=== PATIENT | male | born 1990 | race Caucasian/White ===

== ENCOUNTER 2020-06-01 17:36 | Inpatient (IN) | payer MEDICAID ==
[~2020-06-01] VITALS: Ht 180.3 cm; Wt 69.2 kg
[2020-06-01] MEDS ORDERED: normal saline 1000ML IV soln IVB ONE (19:10)
--- NOTE | 2020-06-01 19:27 | NUR ---
PT HAD PICC LINE TO NITISH TODAY THAT WAS REMOVED WHEN HE LEFT [facility]. NO SWELLING, NO PAIN TO NITISH. PT ALSO HAD PICC LINE TO MIGUEL THAT WAS REMOVED TWO DAYS AGO PER HIS REPORT, FOR PAIN AND "IT WASNT WORKING." HE C/O PAIN TO MIGUEL AND SAID THE ARM HAS BEEN PAINFUL SINCE PICC WAS REMOVED, ELECTED TO PLACE PIV TO LFA. Addendum: 06/01/20 at 1930 by CACHORRO PT HAD PICC LINE TO NITISH TODAY THAT WAS REMOVED WHEN HE LEFT [facility]. NO SWELLING, NO PAIN TO NITISH. PT ALSO HAD PICC LINE TO MIGUEL THAT WAS REMOVED TWO DAYS AGO PER HIS REPORT, FOR PAIN AND "IT WASNT WORKING." HE C/O PAIN TO MIGUEL AND SAID THE ARM HAS BEEN PAINFUL SINCE PICC WAS REMOVED, ELECTED TO PLACE PIV TO RFA.
[2020-06-01 19:48] LABS: BASOPHILS # (AUTO) 0.1 X10'3 (0-0.2); BASOPHILS % (AUTO) 0.9 % (0-1); EOSINOPHILS # (AUTO) 0.5 X10'3 (0-0.9); EOSINOPHILS % (AUTO) 5.1 % (0-6); HEMATOCRIT 30.8 % (42.0-52.0); HEMOGLOBIN 10.5 g/dl (14.0-17.9); LYMPHOCYTES # (AUTO) 1.6 X10'3 (1.1-4.8); LYMPHOCYTES % (AUTO) 15.2 % (21-51); MEAN CORPUSCULAR HEMOGLOBIN 30.4 PG (27.0-31.0); MEAN CORPUSCULAR VOLUME 89.2 FL (78-98); MEAN PLATELET VOLUME 8.4 FL (7.4-10.4); MONOCYTES # (AUTO) 1.3 X10'3 (0-0.9); MONOCYTES % (AUTO) 12.6 % (2-12); NEUTROPHILS # (AUTO) 6.9 X10'3 (1.8-7.7); NEUTROPHILS % (AUTO) 66.2 % (42-75); PLATELET COUNT 327 X10'3 (140-440); RED BLOOD COUNT 3.45 X10'6 (4.70-6.10); RED CELL DISTRIBUTION WIDTH 16.2 % (11.5-14.5); WHITE BLOOD COUNT 10.5 X10'3 (4.5-11.0)
[2020-06-01 20:00] LABS: ALANINE AMINOTRANSFERASE 29 U/L (12-78); ALBUMIN 3.6 G/DL (3.4-5.0); ALBUMIN/GLOBULIN RATIO 0.9 (1.1-1.5); ALKALINE PHOSPHATASE 77 IU/L (46-116); ANION GAP 9 (8-16); ASPARTATE AMINO TRANSFERASE 20 U/L (10-37); BILIRUBIN,TOTAL 0.2 MG/DL (0.1-1.0); BLOOD UREA NITROGEN 27 MG/DL (7-18); BUN/CREATININE RATIO 14.9 (5.4-32.0); C-REACTIVE PROTEIN 0.15 MG/DL (0.0-0.5); CALCIUM 9.7 MG/DL (8.5-10.1); CHLORIDE 101 MMOL/L (99-107); CREATININE 1.81 MG/DL (0.60-1.10); GLUCOSE 144 MG/DL (70-104); POTASSIUM 4.6 MMOL/L (3.5-5.1); SODIUM 139 MMOL/L (135-145); TOTAL CARBON DIOXIDE 28.8 MMOL/L (24-32); TOTAL PROTEIN 7.6 G/DL (6.4-8.2); eGFR 44 ML/MIN
[2020-06-01] MEDS ORDERED: GABA-530 PO (20:52)
[2020-06-01] MEDS ORDERED: OLANZapine 5mg rapidly disint. tablet PO SCH ×2 (21:00→23:29)
[2020-06-01] MEDS ORDERED: ALPR1TAB2 PO (21:08)
[2020-06-01] MEDS ORDERED: INSU200I SQ (21:08)
[2020-06-01] MEDS ORDERED: VANC1VIA21 IV ×2 (21:08→21:32)
[2020-06-01] MEDS ORDERED: INSU100V9 SQ (21:08)
[2020-06-01] MEDS ORDERED: LOPE-190 PO ×2 (21:08)
[2020-06-01] MEDS ORDERED: DICL100G15 TOP (21:08)
[2020-06-01] MEDS ORDERED: PIPE4.5F6 IV (21:08)
[2020-06-01] MEDS ORDERED: OXYC-150 PO (21:26)
[2020-06-01] MEDS ORDERED: LACT1CAP92 PO (21:26)
[2020-06-01] MEDS ORDERED: OLAN20TA3 PO (21:26)
[2020-06-01] MEDS ORDERED: GABA300C PO (21:26)
[2020-06-01] MEDS ORDERED: ALBU18HF2 INH (21:26)
[2020-06-01] MEDS ORDERED: DIVA250T15 PO (21:26)
[2020-06-01] MEDS ORDERED: NICO-807 BC (21:26)
[2020-06-01] MEDS ORDERED: OLAN10TA3 PO (21:26)
[2020-06-01] MEDS ORDERED: OLAN5TAB3 PO (21:26)
[2020-06-01] MEDS ORDERED: morphine 4 MG/ML inj SYRINge IV ONE (21:30)
[2020-06-01] MEDS ORDERED: ACET-890 PO (21:32)
[2020-06-01] MEDS ORDERED: OXYC20TA55 PO (21:32)
[2020-06-01] MEDS ORDERED: POLY119P2 PO (21:32)
[2020-06-01] MEDS ORDERED: ondansetron/PF 4mg/2ml inj IV PRN (22:55)
[2020-06-01] MEDS ORDERED: potassium Cl 40MEQ/1/2NS 520ml 520 ML IV PRN ×2 (22:55)
[2020-06-01] MEDS ORDERED: potassium Cl 20 mEq SR tablet PO PRN ×2 (22:55)
[2020-06-01] MEDS ORDERED: acetaminophen 325mg tablet PO PRN (22:55)
[2020-06-01] MEDS ORDERED: magnesium hydroxide 30ml (MOM) UD suspension PO PRN (22:55)
[2020-06-01] MEDS ORDERED: albuterol 2.5 MG/3 ML nebule NEB PRN (23:00)
[2020-06-01] MEDS ORDERED: ACETAMINOPHEN PO PRN (23:00)
[2020-06-01] MEDS ORDERED: polyethylene glycol 3350 17gm powd pack PO PRN (23:00)
[2020-06-01 23:23] LABS: ETHANOL < 0.010 GM/DL (0.0-0.010)
[2020-06-01] MEDS ORDERED: OLANZAPINE 5 MG TABLET PO SCH (23:33)
[2020-06-01 23:54] LABS: URINE AMPHETAMINE SCREEN NEGATIVE (Neg); URINE BARBITUATE SCREEN NEGATIVE (Neg); URINE BENZODIAZEPINES SCREEN POSITIVE (Neg); URINE CANNABINOID SCREEN NEGATIVE (Neg); URINE COCAINE SCREEN NEGATIVE (Neg); URINE METHADONE SCREEN NEGATIVE (Neg); URINE OPIATE SCREEN POSITIVE (Neg); URINE PHENCYCLIDINE SCREEN NEGATIVE (Neg)
[2020-06-01] MEDS: divalproex 250mg tablet, delayed-release PO SCH (23:54)
[2020-06-01] MEDS: piperacillin/tazo 4.5gm/100ml 100 ML IV SCH (23:55)
[2020-06-02] MEDS ORDERED: TAZOBACTAM IV SCH
[2020-06-02] MEDS ORDERED: PIPERACILLIN IV SCH
[2020-06-02] MEDS: vancomycin/NS 1 GM ADD-VANTAGE 250 ML IV SCH ×2 (00:26→12:15)
--- NOTE | 2020-06-02 00:39 | NUR ---
Received pt. report from ER nurse Argelia.
[2020-06-02] MEDS: oxyCODONE/APAP 10/325mg tablet PO PRN ×2 (00:42→07:08)
[2020-06-02 00:50] VITALS: BP 148/97
--- NOTE | 2020-06-02 01:00 | NUR ---
Assumed care from Sofia HOBBS
[2020-06-02] MEDS: olanzapine 10mg tablet PO SCH ×4 (01:12→20:48)
[2020-06-02] MEDS: DICLOFENAC SODIUM TOP SCH ×4 (02:00→20:52)
[2020-06-02] MEDS ORDERED: dextrose ORAL solution 15 GM/59 ML bottle PO PRN (03:35)
[2020-06-02] MEDS ORDERED: MESSAGE TO PHARMACY PO ONE (03:35)
[2020-06-02] MEDS ORDERED: dextrose 50%-water 50ml dispensing syringe IV PRN ×2 (03:35)
[2020-06-02] MEDS ORDERED: glucagon, human recombinant 1mg kit SUBCUT PRN (03:35)
[2020-06-02] MEDS: ALPRAZolam 0.5mg tablet PO PRN ×3 (04:36→20:45)
--- NOTE | 2020-06-02 04:48 | NUR ---
pt defensive & argumentative in conversations- states he has pain &/or anxiety yet will fall asleep. Pt started to become very agitated asking I get freq of pain rx changed by MD. Disp'd prn xanax pt calmed down & went back to resting with eyes closed
[2020-06-02 06:00] VITALS: BP 149/96
--- NOTE | 2020-06-02 06:38 | NUR ---
Problems reprioritized. Patient report given, questions answered & plan of care reviewed with Jacqueline HOBBS.
[2020-06-02 07:20] LABS: BASOPHILS # (AUTO) 0.1 X10'3 (0-0.2); BASOPHILS % (AUTO) 0.9 % (0-1); EOSINOPHILS # (AUTO) 0.6 X10'3 (0-0.9); EOSINOPHILS % (AUTO) 6.4 % (0-6); HEMATOCRIT 32.7 % (42.0-52.0); HEMOGLOBIN 11.2 g/dl (14.0-17.9); LYMPHOCYTES # (AUTO) 2.1 X10'3 (1.1-4.8); LYMPHOCYTES % (AUTO) 22.6 % (21-51); MEAN CORPUSCULAR HEMOGLOBIN 30.5 PG (27.0-31.0); MEAN CORPUSCULAR HGB CONC 34.1 g/dL (33.0-36.5); MEAN CORPUSCULAR VOLUME 89.3 FL (78-98); MEAN PLATELET VOLUME 8.3 FL (7.4-10.4); MONOCYTES % (AUTO) 10.9 % (2-12); NEUTROPHILS # (AUTO) 5.4 X10'3 (1.8-7.7); NEUTROPHILS % (AUTO) 59.2 % (42-75); PLATELET COUNT 362 X10'3 (140-440); RED BLOOD COUNT 3.67 X10'6 (4.70-6.10); RED CELL DISTRIBUTION WIDTH 15.8 % (11.5-14.5); WHITE BLOOD COUNT 9.1 X10'3 (4.5-11.0)
[2020-06-02] MEDS: piperacillin/tazo 4.5gm/100ml 100 ML IV SCH ×2 (07:22→17:33)
[2020-06-02] MEDS: lactobacillus rhamnosus 10,000 MMU CELLS/CAPSULE PO SCH (07:22)
[2020-06-02] MEDS: gabapentin 300mg capsule PO SCH ×3 (07:22→20:48)
[2020-06-02 07:39] LABS: ALANINE AMINOTRANSFERASE 34 U/L (12-78); ALBUMIN 3.3 G/DL (3.4-5.0); ALBUMIN/GLOBULIN RATIO 0.8 (1.1-1.5); ALKALINE PHOSPHATASE 86 IU/L (46-116); ANION GAP 9 (8-16); ASPARTATE AMINO TRANSFERASE 28 U/L (10-37); BILIRUBIN,TOTAL 0.3 MG/DL (0.1-1.0); BLOOD UREA NITROGEN 22 MG/DL (7-18); BUN/CREATININE RATIO 17.3 (5.4-32.0); CALCIUM 9.6 MG/DL (8.5-10.1); CHLORIDE 102 MMOL/L (99-107); CREATININE 1.27 MG/DL (0.60-1.10); GLUCOSE 91 MG/DL (70-104); POTASSIUM 4.1 MMOL/L (3.5-5.1); SODIUM 137 MMOL/L (135-145); TOTAL CARBON DIOXIDE 26.4 MMOL/L (24-32); TOTAL PROTEIN 7.4 G/DL (6.4-8.2); eGFR 66 ML/MIN
[2020-06-02] MEDS ORDERED: vancomycin 1,000mg inj IV SCH ×2 (08:00)
[2020-06-02] MEDS: K and/or MAG REPLACEMENT MC SCH ×2 (08:00→20:00)
[2020-06-02] MEDS ORDERED: OXYCODONE HCL PO SCH (08:00)
[2020-06-02] MEDS ORDERED: insulin glargine (Lantus) pen - multi-dose SQ SCH (08:00)
[2020-06-02] MEDS ORDERED: oxyCODONE IR 5mg (immed. release) tablet PO PRN (09:40)
[2020-06-02 10:00] VITALS: BP 134/96
[2020-06-02] MEDS: divalproex 250mg tablet, delayed-release PO SCH ×2 (12:18→20:48)
[2020-06-02] MEDS: oxyCODONE IR 5mg (immed. release) tablet PO PRN (12:19)
[2020-06-02] MEDS: insulin Lispro (HumaLOG) vial - multi-dose SQ SCH ×2 (13:55→21:06)
[2020-06-02] MEDS: dextrose ORAL solution 15 GM/59 ML bottle PO PRN ×2 (17:30→17:49)
--- NOTE | 2020-06-02 17:41 | NUR ---
PAGER ID: [phone] MESSAGE: [phone] Nathan blood sugar 39, treating per protocol. Please change his lantus order. Jacqueline [phone]
[2020-06-02 18:00] VITALS: BP 90/54
--- NOTE | 2020-06-02 21:00 | NUR ---
Oxycontin IR 10 mg given per pt's request for reports of pain 10 on 0-10 pain scale in lower back and legs at 2044. Pt resting comfortably in bed with eyes closed at this time. No acute distress observed
[2020-06-02] MEDS: insulin glargine (Lantus) pen - multi-dose SQ SCH (21:09)
[2020-06-02 22:00] VITALS: BP 126/78
[2020-06-03] MEDS: piperacillin/tazo 4.5gm/100ml 100 ML IV SCH ×3 (00:12→16:32)
[2020-06-03] MEDS: vancomycin/NS 1 GM ADD-VANTAGE 250 ML IV SCH ×2 (00:12→12:21)
[2020-06-03] MEDS: olanzapine 10mg tablet PO SCH ×3 (01:32→20:23)
[2020-06-03] MEDS: oxyCODONE IR 5mg (immed. release) tablet PO PRN ×3 (01:33→17:38)
[2020-06-03] MEDS: DICLOFENAC SODIUM TOP SCH ×4 (02:24→20:00)
[2020-06-03 05:00] VITALS: BP 118/77
--- NOTE | 2020-06-03 05:22 | NUR ---
Pt irritable and verbally abusive towards nursing staff at times, in bed sleeping with eyes closed most of this shift, pain well managed with PRN Oxy IR. No acute distress or adverse effects to IV ABT observed.
[2020-06-03 06:00] VITALS: BP 134/96
[2020-06-03 07:03] LABS: BASOPHILS # (AUTO) 0.1 X10'3 (0-0.2); BASOPHILS % (AUTO) 0.8 % (0-1); EOSINOPHILS # (AUTO) 0.4 X10'3 (0-0.9); EOSINOPHILS % (AUTO) 4.8 % (0-6); HEMOGLOBIN 11.7 g/dl (14.0-17.9); LYMPHOCYTES # (AUTO) 1.9 X10'3 (1.1-4.8); LYMPHOCYTES % (AUTO) 24.7 % (21-51); MEAN CORPUSCULAR HEMOGLOBIN 30.2 PG (27.0-31.0); MEAN CORPUSCULAR HGB CONC 33.5 g/dL (33.0-36.5); MEAN PLATELET VOLUME 8.3 FL (7.4-10.4); MONOCYTES # (AUTO) 0.9 X10'3 (0-0.9); MONOCYTES % (AUTO) 11.8 % (2-12); NEUTROPHILS # (AUTO) 4.5 X10'3 (1.8-7.7); NEUTROPHILS % (AUTO) 57.9 % (42-75); PLATELET COUNT 337 X10'3 (140-440); RED BLOOD COUNT 3.88 X10'6 (4.70-6.10); WHITE BLOOD COUNT 7.8 X10'3 (4.5-11.0)
[2020-06-03 07:48] LABS: ALANINE AMINOTRANSFERASE 38 U/L (12-78); ALBUMIN 3.3 G/DL (3.4-5.0); ALBUMIN/GLOBULIN RATIO 0.8 (1.1-1.5); ALKALINE PHOSPHATASE 91 IU/L (46-116); ANION GAP 8 (8-16); ASPARTATE AMINO TRANSFERASE 26 U/L (10-37); BILIRUBIN,TOTAL 0.3 MG/DL (0.1-1.0); BLOOD UREA NITROGEN 24 MG/DL (7-18); BUN/CREATININE RATIO 20.3 (5.4-32.0); CALCIUM 9.5 MG/DL (8.5-10.1); CHLORIDE 101 MMOL/L (99-107); CREATININE 1.18 MG/DL (0.60-1.10); GLUCOSE 133 MG/DL (70-104); POTASSIUM 4.1 MMOL/L (3.5-5.1); SODIUM 135 MMOL/L (135-145); TOTAL CARBON DIOXIDE 26.1 MMOL/L (24-32); TOTAL PROTEIN 7.4 G/DL (6.4-8.2); eGFR 72 ML/MIN
[2020-06-03] MEDS: K and/or MAG REPLACEMENT MC SCH ×2 (08:00→19:18)
[2020-06-03] MEDS: gabapentin 300mg capsule PO SCH ×3 (08:25→20:24)
[2020-06-03] MEDS: divalproex 250mg tablet, delayed-release PO SCH ×2 (08:26→20:24)
[2020-06-03] MEDS: lactobacillus rhamnosus 10,000 MMU CELLS/CAPSULE PO SCH (08:26)
--- NOTE | 2020-06-03 08:40 | NUR ---
Entered room to obtain blood sugar, administer meds and serve breakfast. Patient was extremely rude, and verbally abusive. This nurse advised pt that his behavior, attitude & verbal abuse was inappropriate and unacceptable. He started threatening me "I'm gonna german you, you can't talk to me like that." I walked out of room. One hour later I returned with meds, accu check, & breakfast tray. Patient was calm,polite, & compliant.
[2020-06-03] MEDS: insulin Lispro (HumaLOG) vial - multi-dose SQ SCH ×2 (09:59→19:26)
[2020-06-03] MEDS: ALPRAZolam 0.5mg tablet PO PRN ×2 (10:05→20:24)
[2020-06-03] MEDS ORDERED: GABA300C PO (11:10)
[2020-06-03] MEDS ORDERED: ERGO500041 PO (11:10)
[2020-06-03] MEDS ORDERED: MYC15CR TOP (11:10)
[2020-06-03] MEDS ORDERED: ENOX40SY7 SUBCUT (11:10)
[2020-06-03] MEDS ORDERED: AMYL1CAP54 PO (11:10)
[2020-06-03] MEDS ORDERED: MULT-227 PO (11:10)
[2020-06-03] MEDS ORDERED: VANCOMYCIN LEVEL IV ONE (11:30)
[2020-06-03] MEDS: morphine 2 MG/ML inj. syringe IV PRN (11:49)
[2020-06-03] MEDS: LIPASE/PROTEASE/AMYLASE 4,200 unit CAPSULE.DR PO SCH ×2 (12:21→17:39)
--- NOTE | 2020-06-03 13:47 | NUR ---
DM Consult: A1c 9.8%. RD international project manager attempted bedside for written/verbal DM ed twice. Pt refused verbal ed and stated "I've had this for four years already." Written DM and RD contact information was left at bedside. Will remain available. Addendum: 06/03/20 at [address] Amended: Links added. Addendum: 06/03/20 at 1350 by Dion Nuñez RD COTY Approves
[2020-06-03 18:00] VITALS: BP 134/85
--- NOTE | 2020-06-03 18:25 | NUR ---
Patient in room ORTHO 4008. I have received report from FABY Phillips and had the opportunity to ask questions and assume patient care.
[2020-06-03] MEDS: oxyCODONE SR 10mg (sust. release) tab PO SCH (20:24)
[2020-06-03] MEDS: insulin glargine (Lantus) pen - multi-dose SQ SCH (21:44)
[2020-06-04] MEDS: vancomycin/NS 1 GM ADD-VANTAGE 250 ML IV SCH ×2 (00:54→12:44)
[2020-06-04] MEDS: piperacillin/tazo 4.5gm/100ml 100 ML IV SCH ×3 (00:54→16:20)
[2020-06-04] MEDS: morphine 2 MG/ML inj. syringe IV PRN ×2 (01:05→10:35)
[2020-06-04] MEDS: DICLOFENAC SODIUM TOP SCH ×3 (02:00→14:00)
--- NOTE | 2020-06-04 02:00 | NUR ---
IV infiltrated and could not get another line in until 0450 with multiple RNs trying. Patient was somewhat resistive to care and noncompliant as well.
[2020-06-04] MEDS: ALPRAZolam 0.5mg tablet PO PRN ×2 (04:27→20:39)
[2020-06-04] MEDS: oxyCODONE IR 5mg (immed. release) tablet PO PRN ×2 (04:52→12:48)
[2020-06-04 05:00] VITALS: BP 123/81
[2020-06-04 05:15] LABS: BASOPHILS # (AUTO) 0.1 X10'3 (0-0.2); BASOPHILS % (AUTO) 1.1 % (0-1); EOSINOPHILS # (AUTO) 0.4 X10'3 (0-0.9); EOSINOPHILS % (AUTO) 4.9 % (0-6); HEMOGLOBIN 11.9 g/dl (14.0-17.9); LYMPHOCYTES # (AUTO) 1.9 X10'3 (1.1-4.8); LYMPHOCYTES % (AUTO) 24.5 % (21-51); MEAN CORPUSCULAR HEMOGLOBIN 29.7 PG (27.0-31.0); MEAN CORPUSCULAR HGB CONC 33.1 g/dL (33.0-36.5); MEAN CORPUSCULAR VOLUME 89.8 FL (78-98); MEAN PLATELET VOLUME 8.4 FL (7.4-10.4); MONOCYTES # (AUTO) 0.9 X10'3 (0-0.9); MONOCYTES % (AUTO) 11.8 % (2-12); NEUTROPHILS # (AUTO) 4.6 X10'3 (1.8-7.7); NEUTROPHILS % (AUTO) 57.7 % (42-75); PLATELET COUNT 334 X10'3 (140-440); RED BLOOD COUNT 4.01 X10'6 (4.70-6.10); RED CELL DISTRIBUTION WIDTH 15.1 % (11.5-14.5); WHITE BLOOD COUNT 7.9 X10'3 (4.5-11.0)
[2020-06-04 05:19] LABS: ALANINE AMINOTRANSFERASE 48 U/L (12-78); ALBUMIN 3.4 G/DL (3.4-5.0); ALBUMIN/GLOBULIN RATIO 0.8 (1.1-1.5); ALKALINE PHOSPHATASE 95 IU/L (46-116); ANION GAP 10 (8-16); ASPARTATE AMINO TRANSFERASE 50 U/L (10-37); BILIRUBIN,TOTAL 0.3 MG/DL (0.1-1.0); BLOOD UREA NITROGEN 28 MG/DL (7-18); BUN/CREATININE RATIO 21.4 (5.4-32.0); CALCIUM 9.6 MG/DL (8.5-10.1); CHLORIDE 102 MMOL/L (99-107); CREATININE 1.31 MG/DL (0.60-1.10); GLUCOSE 147 MG/DL (70-104); POTASSIUM 4.1 MMOL/L (3.5-5.1); SODIUM 138 MMOL/L (135-145); TOTAL CARBON DIOXIDE 25.7 MMOL/L (24-32); TOTAL PROTEIN 7.7 G/DL (6.4-8.2); eGFR 63 ML/MIN
--- NOTE | 2020-06-04 06:33 | NUR ---
Problems reprioritized. Patient report given, questions answered & plan of care reviewed with FABY Phillips.
[2020-06-04] MEDS: lactobacillus rhamnosus 10,000 MMU CELLS/CAPSULE PO SCH (07:46)
[2020-06-04] MEDS: olanzapine 10mg tablet PO SCH ×2 (07:47→20:36)
[2020-06-04] MEDS: LIPASE/PROTEASE/AMYLASE 4,200 unit CAPSULE.DR PO SCH ×3 (07:47→17:50)
[2020-06-04] MEDS: divalproex 250mg tablet, delayed-release PO SCH ×2 (07:47→20:35)
[2020-06-04] MEDS: gabapentin 300mg capsule PO SCH ×3 (07:47→20:36)
[2020-06-04] MEDS: K and/or MAG REPLACEMENT MC SCH ×2 (08:00→20:00)
[2020-06-04] MEDS: oxyCODONE SR 10mg (sust. release) tab PO SCH ×2 (09:14→20:35)
[2020-06-04] MEDS: insulin Lispro (HumaLOG) vial - multi-dose SQ SCH ×4 (09:28→22:16)
[2020-06-04 12:55] LABS: LIPASE < 50 U/L (73-393)
--- NOTE | 2020-06-04 13:35 | NUR ---
Patient eating his "birthday cupcake". He heard the tv saying happy birthday (yes it did) He got tearful and said this is what happens, I hear things and it scares me. Patient was very emotional and anxious about "the voices in his head."
[2020-06-04 18:00] VITALS: BP 130/85
--- NOTE | 2020-06-04 18:43 | NUR ---
I have received report from Jacqueline HOBBS and had the opportunity to ask questions and assume patient care.
[2020-06-04 22:00] VITALS: BP 112/65
[2020-06-04] MEDS: morphine 4 MG/ML inj SYRINge IV PRN (22:03)
[2020-06-04] MEDS: insulin glargine (Lantus) pen - multi-dose SQ SCH (22:15)
[2020-06-05] MEDS: vancomycin/NS 1 GM ADD-VANTAGE 250 ML IV SCH ×2 (00:05→12:19)
[2020-06-05] MEDS: piperacillin/tazo 4.5gm/100ml 100 ML IV SCH ×3 (01:22→16:54)
[2020-06-05 02:00] VITALS: BP 106/64
[2020-06-05] MEDS: morphine 4 MG/ML inj SYRINge IV PRN ×4 (02:06→20:09)
--- NOTE | 2020-06-05 06:18 | NUR ---
Problems reprioritized. Patient report given, questions answered & plan of care reviewed with Mian HOBBS.
--- NOTE | 2020-06-05 06:19 | NUR ---
Patient in room ORTHO 4008. I have received report from FABY Jackson and had the opportunity to ask questions and assume patient care.
[2020-06-05 06:55] VITALS: BP 135/89
[2020-06-05] MEDS: LIPASE/PROTEASE/AMYLASE 4,200 unit CAPSULE.DR PO SCH ×3 (07:09→18:06)
[2020-06-05] MEDS: divalproex 250mg tablet, delayed-release PO SCH ×2 (07:09→20:08)
[2020-06-05] MEDS: olanzapine 10mg tablet PO SCH ×2 (07:09→20:08)
[2020-06-05] MEDS: oxyCODONE SR 10mg (sust. release) tab PO SCH ×2 (07:10→20:08)
[2020-06-05] MEDS: gabapentin 300mg capsule PO SCH ×3 (07:10→20:08)
[2020-06-05] MEDS: lactobacillus rhamnosus 10,000 MMU CELLS/CAPSULE PO SCH (07:10)
[2020-06-05 07:46] LABS: BASOPHILS # (AUTO) 0.1 X10'3 (0-0.2); EOSINOPHILS # (AUTO) 0.4 X10'3 (0-0.9); EOSINOPHILS % (AUTO) 6.4 % (0-6); HEMATOCRIT 34.8 % (42.0-52.0); HEMOGLOBIN 11.8 g/dl (14.0-17.9); LYMPHOCYTES # (AUTO) 1.8 X10'3 (1.1-4.8); LYMPHOCYTES % (AUTO) 26.4 % (21-51); MEAN CORPUSCULAR HEMOGLOBIN 30.2 PG (27.0-31.0); MEAN CORPUSCULAR VOLUME 88.9 FL (78-98); MEAN PLATELET VOLUME 8.3 FL (7.4-10.4); MONOCYTES # (AUTO) 0.9 X10'3 (0-0.9); MONOCYTES % (AUTO) 13.5 % (2-12); NEUTROPHILS # (AUTO) 3.6 X10'3 (1.8-7.7); NEUTROPHILS % (AUTO) 52.7 % (42-75); PLATELET COUNT 284 X10'3 (140-440); RED BLOOD COUNT 3.91 X10'6 (4.70-6.10); RED CELL DISTRIBUTION WIDTH 15.3 % (11.5-14.5); WHITE BLOOD COUNT 6.8 X10'3 (4.5-11.0)
[2020-06-05] MEDS: K and/or MAG REPLACEMENT MC SCH ×2 (08:00→20:00)
[2020-06-05 08:02] LABS: ALANINE AMINOTRANSFERASE 41 U/L (12-78); ALBUMIN 3.5 G/DL (3.4-5.0); ALBUMIN/GLOBULIN RATIO 0.8 (1.1-1.5); ALKALINE PHOSPHATASE 89 IU/L (46-116); ANION GAP 8 (8-16); ASPARTATE AMINO TRANSFERASE 19 U/L (10-37); BILIRUBIN,TOTAL 0.3 MG/DL (0.1-1.0); BLOOD UREA NITROGEN 30 MG/DL (7-18); BUN/CREATININE RATIO 26.3 (5.4-32.0); CALCIUM 9.7 MG/DL (8.5-10.1); CHLORIDE 100 MMOL/L (99-107); CREATININE 1.14 MG/DL (0.60-1.10); GLUCOSE 196 MG/DL (70-104); POTASSIUM 4.1 MMOL/L (3.5-5.1); SODIUM 134 MMOL/L (135-145); TOTAL PROTEIN 7.7 G/DL (6.4-8.2); eGFR 74 ML/MIN
[2020-06-05] MEDS: ALPRAZolam 0.5mg tablet PO PRN ×2 (08:16→20:08)
[2020-06-05] MEDS: insulin Lispro (HumaLOG) vial - multi-dose SQ SCH ×3 (08:18→20:17)
[2020-06-05 10:00] VITALS: BP 135/92
--- NOTE | 2020-06-05 10:59 | NUR ---
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 Pt hx alcoholic, pancreatitis, T1DM refusing ed this admit, seizures, and meth abuse. PO 75-100% avg easy to chew/carb controlled diet w/ double proteins TIDWM meeting needs. LBM 3/2. Noted pt receiving pancreatic enzymes w/ lipase low and no mention of pancreatitis DX or chronic pancreatitis in EMR. May benefit from holding if DO agreeable. RD d/w RN regarding routine thiamin, folic, MVI if DO agreeable for etoh hx. Will continue to monitor. Rec: 1. continue carb controlled/easy to chew diet; double proteins TIDWM 2. consider holding pancreatic enzymes IF no hx chronic pancreatitis since not on home meds list and DO agreeable 3. thiamin, folic, MVI for etoh hx 4. bowel care per rx 5. weekly wts Addendum: 06/05/20 at [address] Amended: Links added.
[2020-06-05] MEDS: oxyCODONE IR 5mg (immed. release) tablet PO PRN (11:03)
[2020-06-05] MEDS ORDERED: oxyCODONE/APAP 5-325mg tablet PO PRN (11:20)
--- NOTE | 2020-06-05 15:03 | NUR ---
Patient agitated this morning and did not allow for full physical assessment. Only able to assess what patient allowed. Patient states he did not get enough sleep and was tired and "painful all over." Patient will state he is painful and asking for Dr to change pain meds however he has been sleeping throughout shift when he is not disturbed Dr Wolfe aware. Patient quickly becomes irritable when awaken or questioned. Patient mood shifts as he also has been tearful, crying and has stated he has been "hearing things and with the depression I can't stop crying. And when I feel this why I get angry. I don't wanna be fucking angry and crying." Patient asking for Dr to "check my meds I need something else that will help." Dr. Wolfe notified. Patient thankful when he is able to get what he wants however when he does not he will be agitated. Patient has asked for snacks throughout the day. He was given sugar free applesauce, sugar free jello and diet lemon [place] and was very thankful but became agitated when he had asked for dejuan crackers and 4 string cheeses and was educated about carb diet and increase in blood glucose. Patient at this time appears to be sleeping comfortably with eyes closed, respirations even and unlabored. Will continue to monitor.
--- NOTE | 2020-06-05 15:37 | NUR ---
Alia from [facility] in to see patient.
[2020-06-05] MEDS: oxyCODONE/APAP 10/325mg tablet PO PRN ×2 (16:39→22:28)
--- NOTE | 2020-06-05 17:02 | NUR ---
Patient states, "I'm feeling happy right now" appears to be in good spirits. When asked what is making him happy patient shrugged "I don't know and smiled."
--- NOTE | 2020-06-05 17:10 | NUR ---
Patient room door is shut but able to hear patient crying in room and talking. When went to room to check on patient PCT was in room with patient gathering vital signs and patient tearful and crying stating, "someone last night said I was jacking off and I wasn't. I want to talk to them. That's embarrassing I would never do that. The doctor said they said that and they're out there telling everybody." Reassured patient that there has been no mention of patient doing as such. Patient calmed down and stopped crying. Will continue to monitor.
[2020-06-05 18:00] VITALS: BP 128/99
--- NOTE | 2020-06-05 18:20 | NUR ---
report received and discussed with Mian HOBBS.
--- NOTE | 2020-06-05 18:31 | NUR ---
Problems reprioritized. Patient report given, questions answered & plan of care reviewed with FABY Rodriguez.
[2020-06-05] MEDS: insulin glargine (Lantus) pen - multi-dose SQ SCH (20:15)
[2020-06-05 22:00] VITALS: BP 130/77
[2020-06-06] MEDS: piperacillin/tazo 4.5gm/100ml 100 ML IV SCH ×4 (00:15→23:09)
[2020-06-06] MEDS: vancomycin/NS 1 GM ADD-VANTAGE 250 ML IV SCH ×2 (00:15→12:17)
[2020-06-06] MEDS: morphine 4 MG/ML inj SYRINge IV PRN ×2 (02:02→19:13)
[2020-06-06] MEDS: oxyCODONE/APAP 10/325mg tablet PO PRN ×4 (04:16→23:09)
--- NOTE | 2020-06-06 06:14 | NUR ---
patient report given and discussed with Ann HOBBS. Addendum: 06/06/20 at 0616 by Michael MACHUCA RN Report given to
[2020-06-06 06:34] VITALS: BP 122/89
--- NOTE | 2020-06-06 06:34 | NUR ---
Patient in room ORTHO 4008. I have received report from [facility] and had the opportunity to ask questions and assume patient care.
[2020-06-06] MEDS: divalproex 250mg tablet, delayed-release PO SCH ×2 (07:35→20:36)
[2020-06-06] MEDS: lactobacillus rhamnosus 10,000 MMU CELLS/CAPSULE PO SCH (07:35)
[2020-06-06] MEDS: ALPRAZolam 0.5mg tablet PO PRN (07:36)
[2020-06-06] MEDS: oxyCODONE SR 10mg (sust. release) tab PO SCH ×2 (07:36→20:37)
[2020-06-06] MEDS: olanzapine 10mg tablet PO SCH ×2 (07:36→20:37)
[2020-06-06] MEDS: gabapentin 300mg capsule PO SCH ×3 (07:36→20:36)
[2020-06-06] MEDS: LIPASE/PROTEASE/AMYLASE 4,200 unit CAPSULE.DR PO SCH ×3 (07:36→17:33)
[2020-06-06 07:53] LABS: BASOPHILS # (AUTO) 0.1 X10'3 (0-0.2); EOSINOPHILS # (AUTO) 0.5 X10'3 (0-0.9); EOSINOPHILS % (AUTO) 7.9 % (0-6); HEMATOCRIT 35.9 % (42.0-52.0); HEMOGLOBIN 11.9 g/dl (14.0-17.9); LYMPHOCYTES # (AUTO) 1.5 X10'3 (1.1-4.8); LYMPHOCYTES % (AUTO) 21.5 % (21-51); MEAN CORPUSCULAR HEMOGLOBIN 29.9 PG (27.0-31.0); MEAN CORPUSCULAR HGB CONC 33.1 g/dL (33.0-36.5); MEAN CORPUSCULAR VOLUME 90.5 FL (78-98); MEAN PLATELET VOLUME 8.8 FL (7.4-10.4); MONOCYTES # (AUTO) 0.9 X10'3 (0-0.9); MONOCYTES % (AUTO) 12.9 % (2-12); NEUTROPHILS # (AUTO) 3.9 X10'3 (1.8-7.7); NEUTROPHILS % (AUTO) 56.7 % (42-75); PLATELET COUNT 262 X10'3 (140-440); RED BLOOD COUNT 3.97 X10'6 (4.70-6.10); RED CELL DISTRIBUTION WIDTH 15.1 % (11.5-14.5); WHITE BLOOD COUNT 6.9 X10'3 (4.5-11.0)
[2020-06-06] MEDS: K and/or MAG REPLACEMENT MC SCH ×2 (08:00→20:00)
[2020-06-06 08:14] LABS: ALANINE AMINOTRANSFERASE 37 U/L (12-78); ALBUMIN 3.4 G/DL (3.4-5.0); ALBUMIN/GLOBULIN RATIO 0.9 (1.1-1.5); ALKALINE PHOSPHATASE 78 IU/L (46-116); ANION GAP 11 (8-16); ASPARTATE AMINO TRANSFERASE 23 U/L (10-37); BILIRUBIN,TOTAL 0.3 MG/DL (0.1-1.0); BLOOD UREA NITROGEN 35 MG/DL (7-18); BUN/CREATININE RATIO 29.7 (5.4-32.0); CALCIUM 9.3 MG/DL (8.5-10.1); CHLORIDE 98 MMOL/L (99-107); CREATININE 1.18 MG/DL (0.60-1.10); GLUCOSE 196 MG/DL (70-104); POTASSIUM 4.3 MMOL/L (3.5-5.1); SODIUM 135 MMOL/L (135-145); TOTAL CARBON DIOXIDE 26.5 MMOL/L (24-32); TOTAL PROTEIN 7.4 G/DL (6.4-8.2); eGFR 72 ML/MIN
[2020-06-06] MEDS: insulin Lispro (HumaLOG) vial - multi-dose SQ SCH ×3 (08:52→21:17)
[2020-06-06 09:52] VITALS: BP 133/83
[2020-06-06] MEDS: ALPRAZolam 0.5mg tablet PO SCH ×2 (11:50→20:36)
[2020-06-06] MEDS: mag hydrox/Alum hydrox/simeth 30ml oral suspension PO PRN (17:04)
[2020-06-06] MEDS: morphine 2 MG/ML inj. syringe IV PRN (17:05)
[2020-06-06 18:00] VITALS: BP 121/71
--- NOTE | 2020-06-06 18:09 | NUR ---
Problems reprioritized. Patient report given, questions answered & plan of care reviewed with Michael.
[2020-06-06] MEDS: insulin glargine (Lantus) pen - multi-dose SQ SCH (20:52)
--- NOTE | 2020-06-06 21:00 | NUR ---
Paged Dr. Levi regarding elevated blood glucose of 409 but this was 15 minutes after he ate and no insulin was given at regular dinner time since he didn't get finished eating till now. His dinner blood sugar was 206 and nothing given at that time was waiting on him to finish his dinner per pt's nurse. His Lantus insulin was increased to 17 units based on am elevated blood sugar per protocol. Dr. Levi is going to order specific dose of Humalog insulin to be given at this time.
[2020-06-06 22:00] VITALS: BP 123/74
[2020-06-07] MEDS: vancomycin/NS 1 GM ADD-VANTAGE 250 ML IV SCH ×2 (00:28→12:08)
[2020-06-07] MEDS: morphine 2 MG/ML inj. syringe IV PRN ×3 (01:37→17:35)
[2020-06-07] MEDS: oxyCODONE/APAP 10/325mg tablet PO PRN ×4 (04:20→22:41)
--- NOTE | 2020-06-07 06:29 | NUR ---
Patient in room ORTHO 4008. I have received report from [facility] and had the opportunity to ask questions and assume patient care.
[2020-06-07 06:32] VITALS: BP 127/89
[2020-06-07] MEDS: LIPASE/PROTEASE/AMYLASE 4,200 unit CAPSULE.DR PO SCH ×3 (07:46→17:35)
[2020-06-07] MEDS: lactobacillus rhamnosus 10,000 MMU CELLS/CAPSULE PO SCH (07:46)
[2020-06-07] MEDS: divalproex 250mg tablet, delayed-release PO SCH ×2 (07:46→20:31)
[2020-06-07] MEDS: piperacillin/tazo 4.5gm/100ml 100 ML IV SCH ×3 (07:46→23:51)
[2020-06-07] MEDS: oxyCODONE SR 10mg (sust. release) tab PO SCH ×2 (07:46→20:31)
[2020-06-07] MEDS: gabapentin 300mg capsule PO SCH ×3 (07:46→20:30)
[2020-06-07] MEDS: olanzapine 10mg tablet PO SCH ×2 (07:47→20:31)
[2020-06-07] MEDS: ALPRAZolam 0.5mg tablet PO SCH ×2 (07:47→20:30)
[2020-06-07] MEDS: K and/or MAG REPLACEMENT MC SCH ×2 (08:00→20:00)
--- NOTE | 2020-06-07 08:05 | NUR ---
Spoke with Dr. Wolfe about insulin protocol for this patient. He is a type 1 diabetic and had a PM BS in the 400s and was not covered with humalog for dinner causing a blood sugar of 272 this morning which would increase him from a level 3 to 4. Yesterday I increased him to a level 4 at breakfast and gave 15 units of insulin which dropped him to a 76 at lunch time. For correctional and nutritional coverage this morning at a level 4 he would be getting 23 units of insulin which i feel is too much for him. Dr. Wolfe in agreeance and he is OK to stay at a LEVEL 3.
[2020-06-07] MEDS: insulin Lispro (HumaLOG) vial - multi-dose SQ SCH ×3 (08:13→18:35)
--- NOTE | 2020-06-07 09:06 | NUR ---
spoke to pharmacist sakina zaragoza. He states that since the last one on 06/03 was therapeutic there will not be another trough drawn for 5-7 days, however the renal function needs to be monitored daily.
--- NOTE | 2020-06-07 09:45 | NUR ---
Both IVs infiltrated, 22g to L forearm and 20g to R hand. Charge nurse started new 20g in right forearm, flushes well and is infusing IV abx per md order.
[2020-06-07 09:55] VITALS: BP 131/89
[2020-06-07] MEDS ORDERED: vitamin A & D ointment-NF 1 APPLIC TUBE TP PRN (11:55)
[2020-06-07] MEDS: ALPRAZolam 0.5mg tablet PO PRN (12:08)
[2020-06-07] MEDS: mag hydrox/Alum hydrox/simeth 30ml oral suspension PO PRN (16:08)
--- NOTE | 2020-06-07 16:29 | NUR ---
Patient needs a PICC for IV abx that are needed until 06/23. Paged PICC when I received the order with no response back. PT will need a picc wednesday when picc nurse is here.
[2020-06-07 18:00] VITALS: BP 143/83
--- NOTE | 2020-06-07 18:23 | NUR ---
Problems reprioritized. Patient report given, questions answered & plan of care reviewed with Michael HOBBS.
[2020-06-07] MEDS: mineral oil/petrolatum, white cream 113gm jar TP SCH (20:31)
[2020-06-07] MEDS: insulin glargine (Lantus) pen - multi-dose SQ SCH (20:41)
[2020-06-07 22:00] VITALS: BP 132/78
[2020-06-08] MEDS: vancomycin/NS 1 GM ADD-VANTAGE 250 ML IV SCH ×2 (00:33→13:22)
[2020-06-08] MEDS: morphine 2 MG/ML inj. syringe IV PRN ×2 (02:19→17:10)
[2020-06-08] MEDS: oxyCODONE/APAP 10/325mg tablet PO PRN ×4 (04:35→22:29)
[2020-06-08 06:00] VITALS: BP_SYST 140; BP_SYST 150; BP_DIAS 88; BP_DIAS 97
--- NOTE | 2020-06-08 06:45 | NUR ---
Patient in room ORTHO 4008. I have received report from FABY MEDELLIN and had the opportunity to ask questions and assume patient care.
[2020-06-08] MEDS: olanzapine 10mg tablet PO SCH ×2 (07:43→20:15)
[2020-06-08] MEDS: lactobacillus rhamnosus 10,000 MMU CELLS/CAPSULE PO SCH (07:43)
[2020-06-08 07:44] LABS: BASOPHILS # (AUTO) 0.1 X10'3 (0-0.2); BASOPHILS % (AUTO) 0.7 % (0-1); EOSINOPHILS # (AUTO) 0.8 X10'3 (0-0.9); EOSINOPHILS % (AUTO) 8.9 % (0-6); HEMATOCRIT 35.4 % (42.0-52.0); HEMOGLOBIN 11.8 g/dl (14.0-17.9); LYMPHOCYTES # (AUTO) 2.9 X10'3 (1.1-4.8); LYMPHOCYTES % (AUTO) 31.4 % (21-51); MEAN CORPUSCULAR HEMOGLOBIN 29.8 PG (27.0-31.0); MEAN CORPUSCULAR HGB CONC 33.3 g/dL (33.0-36.5); MEAN CORPUSCULAR VOLUME 89.5 FL (78-98); MEAN PLATELET VOLUME 8.8 FL (7.4-10.4); MONOCYTES # (AUTO) 1.2 X10'3 (0-0.9); MONOCYTES % (AUTO) 12.5 % (2-12); NEUTROPHILS # (AUTO) 4.3 X10'3 (1.8-7.7); NEUTROPHILS % (AUTO) 46.5 % (42-75); PLATELET COUNT 293 X10'3 (140-440); RED BLOOD COUNT 3.95 X10'6 (4.70-6.10); RED CELL DISTRIBUTION WIDTH 14.6 % (11.5-14.5); WHITE BLOOD COUNT 9.4 X10'3 (4.5-11.0)
[2020-06-08] MEDS: gabapentin 300mg capsule PO SCH ×3 (07:44→20:16)
[2020-06-08] MEDS: oxyCODONE SR 10mg (sust. release) tab PO SCH ×2 (07:44→20:15)
[2020-06-08] MEDS: LIPASE/PROTEASE/AMYLASE 4,200 unit CAPSULE.DR PO SCH ×3 (07:45→17:59)
[2020-06-08] MEDS: divalproex 250mg tablet, delayed-release PO SCH ×2 (07:47→20:15)
[2020-06-08] MEDS: piperacillin/tazo 4.5gm/100ml 100 ML IV SCH ×2 (07:47→15:45)
[2020-06-08] MEDS: ALPRAZolam 0.5mg tablet PO SCH ×2 (07:48→20:15)
[2020-06-08] MEDS: mineral oil/petrolatum, white cream 113gm jar TP SCH ×2 (07:49→20:22)
[2020-06-08] MEDS: K and/or MAG REPLACEMENT MC SCH ×2 (08:00→20:00)
[2020-06-08 08:12] LABS: ALANINE AMINOTRANSFERASE 27 U/L (12-78); ALBUMIN 3.7 G/DL (3.4-5.0); ALBUMIN/GLOBULIN RATIO 0.9 (1.1-1.5); ALKALINE PHOSPHATASE 81 IU/L (46-116); ANION GAP 10 (8-16); ASPARTATE AMINO TRANSFERASE 14 U/L (10-37); BILIRUBIN,TOTAL 0.2 MG/DL (0.1-1.0); BLOOD UREA NITROGEN 32 MG/DL (7-18); CALCIUM 9.5 MG/DL (8.5-10.1); CHLORIDE 97 MMOL/L (99-107); CREATININE 1.39 MG/DL (0.60-1.10); GLUCOSE 296 MG/DL (70-104); POTASSIUM 4.7 MMOL/L (3.5-5.1); SODIUM 134 MMOL/L (135-145); TOTAL CARBON DIOXIDE 27.4 MMOL/L (24-32); eGFR 59 ML/MIN
[2020-06-08] MEDS: insulin Lispro (HumaLOG) vial - multi-dose SQ SCH ×2 (09:52→20:13)
--- NOTE | 2020-06-08 10:00 | NUR ---
PER IT IS OK TO GIVE MORPHINE AN HOUR AFTER PERCOCET
[2020-06-08 10:52] VITALS: BP 150/97
[2020-06-08 18:00] VITALS: BP 126/78
[2020-06-08] MEDS: ALPRAZolam 0.5mg tablet PO PRN (18:01)
--- NOTE | 2020-06-08 18:52 | NUR ---
Problems reprioritized. Patient report given, questions answered & plan of care reviewed with FABY RAMIREZ.
[2020-06-08 22:00] VITALS: BP 113/71
[2020-06-08] MEDS: insulin glargine (Lantus) pen - multi-dose SQ SCH (22:18)
[2020-06-08] MEDS ORDERED: VANCOMYCIN LEVEL IV ONE (23:30)
[2020-06-09] MEDS: piperacillin/tazo 4.5gm/100ml 100 ML IV SCH ×5 (00:27→23:41)
[2020-06-09] MEDS: morphine 2 MG/ML inj. syringe IV PRN ×4 (00:27→20:50)
[2020-06-09] MEDS: vancomycin/NS 1 GM ADD-VANTAGE 250 ML IV SCH ×3 (00:27→23:41)
[2020-06-09] MEDS: oxyCODONE/APAP 10/325mg tablet PO PRN ×5 (03:41→23:42)
[2020-06-09 05:00] VITALS: BP 124/85
--- NOTE | 2020-06-09 07:00 | NUR ---
Pt. refused physical assessment from primary RN. Only interested in student RN performing assessment.
[2020-06-09 07:24] LABS: ALANINE AMINOTRANSFERASE 24 U/L (12-78); ALBUMIN 3.3 G/DL (3.4-5.0); ALBUMIN/GLOBULIN RATIO 0.8 (1.1-1.5); ALKALINE PHOSPHATASE 71 IU/L (46-116); ANION GAP 6 (8-16); ASPARTATE AMINO TRANSFERASE 10 U/L (10-37); BILIRUBIN,TOTAL 0.2 MG/DL (0.1-1.0); BLOOD UREA NITROGEN 36 MG/DL (7-18); BUN/CREATININE RATIO 26.1 (5.4-32.0); CALCIUM 9.6 MG/DL (8.5-10.1); CHLORIDE 98 MMOL/L (99-107); CREATININE 1.38 MG/DL (0.60-1.10); GLUCOSE 261 MG/DL (70-104); POTASSIUM 4.6 MMOL/L (3.5-5.1); SODIUM 135 MMOL/L (135-145); TOTAL CARBON DIOXIDE 30.6 MMOL/L (24-32); TOTAL PROTEIN 7.2 G/DL (6.4-8.2); eGFR 60 ML/MIN
[2020-06-09 07:29] LABS: BASOPHILS % (AUTO) 0.6 % (0-1); EOSINOPHILS # (AUTO) 0.6 X10'3 (0-0.9); EOSINOPHILS % (AUTO) 9.1 % (0-6); HEMATOCRIT 33.6 % (42.0-52.0); HEMOGLOBIN 11.2 g/dl (14.0-17.9); LYMPHOCYTES # (AUTO) 1.7 X10'3 (1.1-4.8); LYMPHOCYTES % (AUTO) 24.7 % (21-51); MEAN CORPUSCULAR HEMOGLOBIN 30.2 PG (27.0-31.0); MEAN CORPUSCULAR HGB CONC 33.4 g/dL (33.0-36.5); MEAN CORPUSCULAR VOLUME 90.3 FL (78-98); MONOCYTES # (AUTO) 0.8 X10'3 (0-0.9); MONOCYTES % (AUTO) 11.6 % (2-12); NEUTROPHILS # (AUTO) 3.7 X10'3 (1.8-7.7); PLATELET COUNT 239 X10'3 (140-440); RED BLOOD COUNT 3.72 X10'6 (4.70-6.10); WHITE BLOOD COUNT 6.9 X10'3 (4.5-11.0)
[2020-06-09] MEDS: K and/or MAG REPLACEMENT MC SCH ×2 (08:00→19:13)
[2020-06-09] MEDS: oxyCODONE SR 10mg (sust. release) tab PO SCH (08:00)
[2020-06-09] MEDS: gabapentin 300mg capsule PO SCH ×3 (08:35→20:48)
[2020-06-09] MEDS: olanzapine 10mg tablet PO SCH ×2 (08:35→20:48)
[2020-06-09] MEDS: LIPASE/PROTEASE/AMYLASE 4,200 unit CAPSULE.DR PO SCH ×3 (08:36→18:27)
[2020-06-09] MEDS: lactobacillus rhamnosus 10,000 MMU CELLS/CAPSULE PO SCH (08:36)
[2020-06-09] MEDS: divalproex 250mg tablet, delayed-release PO SCH ×2 (08:36→20:48)
[2020-06-09] MEDS: mineral oil/petrolatum, white cream 113gm jar TP SCH ×3 (08:37→20:00)
[2020-06-09] MEDS: ALPRAZolam 0.5mg tablet PO SCH ×3 (08:37→23:42)
[2020-06-09] MEDS: insulin Lispro (HumaLOG) vial - multi-dose SQ SCH ×3 (08:54→18:43)
--- NOTE | 2020-06-09 09:10 | NUR ---
Pt. IV does not work. Infiltrated and patient screaming out in pain when flushed with 2 ml of NS. Zosyn due however pt. will not allow for a new IV to be placed. Blaming staff for not being able to make an IV last. Screaming and yelling loudly. Pacing and seems aggressive.
--- NOTE | 2020-06-09 09:12 | NUR ---
Resource made aware. Turner will try and address issue from here on. Notified her that an IV antibiotic is due now. Going on 15 minute break.
[2020-06-09 10:00] VITALS: BP 115/70
--- NOTE | 2020-06-09 15:07 | NUR ---
PT. REQUESTING ANOTHER MEAL TRAY IN BETWEEN MEALS. PT. STATES HE IS SUPPOSED TO "HAVE MEALS BETWEEN MEALS" AND IS NOT RECEIVING THEM. STATES HE IS "TIRED OF FUCKING YOGURT". DOES NOT WANT ANY OF THE FOOD ON THE FLOOR. PT. IS FRAGILE DIABETIC. CALLED CAM MAKER TO MAKE HIM AWARE OF SITUATION AND REQUEST CONSULT. CAM MAKER AGREES AND WILL VISIT PT. SHORTLY.
--- NOTE | 2020-06-09 15:24 | NUR ---
PAGER ID: [phone] MESSAGE: MARCIA CASTILLO [phone] PT. REQUESTING NICOTINE PATCH. CASANDRA [phone]
--- NOTE | 2020-06-09 15:42 | NUR ---
Wound pictures done and wound care provided.
--- NOTE | 2020-06-09 16:08 | NUR ---
RN TC: Pt requesting additional foods w/ meals and would like to speak to someone. Pt seen by RD reports still hungry after meals even though receiving double proteins TIDWM and is frequently requesting snacks. RD reviewed appropriate snack options w/ pt including floor pantry DM-friendly snack items. Pt reports nerve in mouth makes chewing on tougher meats difficult causing pain; to send chopped meats and gravy w/ meats. Pt is agreeable to diet soda x2/ketchup/milk and string cheese/2x condiments all TIDWM. Pt reports disliking teas and only wanting ranch for salads also requesting cheerios x2 w/ milk at breakfast; is aware that this will cover majority of carbs for meal. Dietary notified of pt preferences. Pt T1DM in combination w/ psych meds likely causing elevated appetite at this time. RD encouraged pt to request dietitian if further questions/concerns. Rec: 1. continue carb controlled/easy to chew diet; double proteins TIDWM, chopped meats w/ gravy 2. consider holding pancreatic enzymes IF no hx chronic pancreatitis since not on home meds list and DO agreeable 3. honor pt food preferences; voracious appetite already exceeding protein/kcal needs 4. thiamin, folic, MVI for etoh hx 5. bowel care per rx 6. weekly wts Addendum: 06/09/20 at 1610 by Dion Nuñez RD Amended: Links added. Addendum: 06/09/20 at [address] Dion Nuñez RD FABY TC: Pt requesting additional foods w/ meals and would like to speak to someone. Pt seen by RD reports still hungry after meals even though receiving double proteins TIDWM and is frequently requesting snacks. RD reviewed appropriate snack options w/ pt including floor pantry DM-friendly snack items. Pt reports nerve in mouth makes chewing on tougher meats difficult causing pain; to send chopped meats and gravy w/ meats. Pt is agreeable to diet soda x2/ketchup/milk and string cheese/2x condiments all TIDWM. Pt reports disliking teas and only wanting ranch for salads also requesting cheerios x2 w/ milk at breakfast; is aware that this will cover majority of carbs for meal. Dietary notified of pt preferences. Pt T1DM in combination w/ psych meds likely causing elevated appetite at this time. RD encouraged pt to request dietitian if further questions/concerns. PO 100% avg meals exceeding nutrition needs. LBM 3/4. No nutrition concerns at this time. Will continue to monitor. Rec: 1. continue carb controlled/easy to chew diet; double proteins TIDWM, chopped meats w/ gravy 2. consider holding pancreatic enzymes IF no hx chronic pancreatitis since not on home meds list and DO agreeable 3. honor pt food preferences; voracious appetite already exceeding protein/kcal needs 4. thiamin, folic, MVI for etoh hx 5. bowel care per rx 6. weekly wts
[2020-06-09] MEDS ORDERED: nicotine 21mg patch - 24 hr TD ONE (16:30)
[2020-06-09 18:00] VITALS: BP 122/74
[2020-06-09] MEDS: temazepam 15mg capsule PO PRN (20:48)
[2020-06-09] MEDS: insulin glargine (Lantus) pen - multi-dose SQ SCH (20:54)
[2020-06-09 21:38] VITALS: BP 129/80
[2020-06-10] MEDS: oxyCODONE/APAP 10/325mg tablet PO PRN ×4 (05:37→19:07)
[2020-06-10] MEDS: ALPRAZolam 0.5mg tablet PO PRN ×3 (05:38→21:04)
[2020-06-10 06:00] VITALS: BP 111/73
--- NOTE | 2020-06-10 06:02 | NUR ---
Report given to John William.
--- NOTE | 2020-06-10 06:05 | NUR ---
received report from shahid benz
[2020-06-10] MEDS: morphine 2 MG/ML inj. syringe IV PRN ×4 (07:11→22:45)
[2020-06-10] MEDS: piperacillin/tazo 4.5gm/100ml 100 ML IV SCH ×2 (07:12→15:51)
[2020-06-10] MEDS: lactobacillus rhamnosus 10,000 MMU CELLS/CAPSULE PO SCH (07:15)
[2020-06-10] MEDS: divalproex 250mg tablet, delayed-release PO SCH ×2 (07:15→21:05)
[2020-06-10] MEDS: gabapentin 300mg capsule PO SCH ×3 (07:16→21:01)
[2020-06-10] MEDS: ALPRAZolam 0.5mg tablet PO SCH ×2 (07:16→15:50)
[2020-06-10] MEDS: olanzapine 10mg tablet PO SCH ×2 (07:19→21:04)
[2020-06-10] MEDS: nicotine 21mg patch - 24 hr TD SCH (07:19)
[2020-06-10] MEDS: mineral oil/petrolatum, white cream 113gm jar TP SCH ×2 (07:19→20:00)
[2020-06-10] MEDS: LIPASE/PROTEASE/AMYLASE 4,200 unit CAPSULE.DR PO SCH ×3 (07:20→19:08)
--- NOTE | 2020-06-10 07:23 | NUR ---
scanner on computer not scanning meds into [facility], checked all meds prior to admin
[2020-06-10] MEDS: K and/or MAG REPLACEMENT MC SCH ×2 (07:26→20:00)
[2020-06-10 07:47] LABS: BASOPHILS # (AUTO) 0.1 X10'3 (0-0.2); BASOPHILS % (AUTO) 0.8 % (0-1); EOSINOPHILS # (AUTO) 0.6 X10'3 (0-0.9); EOSINOPHILS % (AUTO) 9.6 % (0-6); HEMATOCRIT 33.9 % (42.0-52.0); HEMOGLOBIN 11.2 g/dl (14.0-17.9); LYMPHOCYTES # (AUTO) 1.4 X10'3 (1.1-4.8); LYMPHOCYTES % (AUTO) 22.9 % (21-51); MEAN CORPUSCULAR HEMOGLOBIN 29.8 PG (27.0-31.0); MEAN CORPUSCULAR HGB CONC 33.1 g/dL (33.0-36.5); MEAN CORPUSCULAR VOLUME 90.1 FL (78-98); MEAN PLATELET VOLUME 8.9 FL (7.4-10.4); MONOCYTES % (AUTO) 15.3 % (2-12); NEUTROPHILS # (AUTO) 3.2 X10'3 (1.8-7.7); NEUTROPHILS % (AUTO) 51.4 % (42-75); PLATELET COUNT 227 X10'3 (140-440); RED BLOOD COUNT 3.76 X10'6 (4.70-6.10); RED CELL DISTRIBUTION WIDTH 14.7 % (11.5-14.5); WHITE BLOOD COUNT 6.3 X10'3 (4.5-11.0)
[2020-06-10 08:02] LABS: ALANINE AMINOTRANSFERASE 23 U/L (12-78); ALBUMIN 3.2 G/DL (3.4-5.0); ALBUMIN/GLOBULIN RATIO 0.9 (1.1-1.5); ALKALINE PHOSPHATASE 64 IU/L (46-116); ANION GAP 8 (8-16); ASPARTATE AMINO TRANSFERASE 13 U/L (10-37); BILIRUBIN,TOTAL 0.2 MG/DL (0.1-1.0); BLOOD UREA NITROGEN 33 MG/DL (7-18); BUN/CREATININE RATIO 28.2 (5.4-32.0); CALCIUM 9.4 MG/DL (8.5-10.1); CHLORIDE 99 MMOL/L (99-107); CREATININE 1.17 MG/DL (0.60-1.10); GLUCOSE 235 MG/DL (70-104); POTASSIUM 4.5 MMOL/L (3.5-5.1); SODIUM 136 MMOL/L (135-145); TOTAL CARBON DIOXIDE 29.2 MMOL/L (24-32); TOTAL PROTEIN 6.9 G/DL (6.4-8.2); eGFR 72 ML/MIN
[2020-06-10] MEDS: insulin Lispro (HumaLOG) vial - multi-dose SQ SCH ×3 (09:11→19:03)
[2020-06-10 09:51] LABS: PLATELET ESTIMATE NORMAL; TOTAL CELLS COUNTED 100
[2020-06-10 10:00] VITALS: BP 100/59
[2020-06-10] MEDS: vancomycin/NS 1 GM ADD-VANTAGE 250 ML IV SCH (11:28)
--- NOTE | 2020-06-10 15:54 | NUR ---
scanner on computer not working, checked all meds prior to admin
--- NOTE | 2020-06-10 17:13 | NUR ---
called 3rd floor [facility] b/c hospitalist wanted pt to have MH doc to adjust pt medications, [facility] told me that they are passing the message to the nursing staff
[2020-06-10 18:00] VITALS: BP 120/75
[2020-06-10 18:15] VITALS: BP 120/75
--- NOTE | 2020-06-10 18:22 | NUR ---
gave report to shahid sánchez
--- NOTE | 2020-06-10 18:32 | NUR ---
RECEIVED REPORT FROM [facility] Addendum: 06/10/20 at 1833 by Erika Almendarez - Student [facility] RECEIVED REPORT AT 1815 Addendum: 06/10/20 at 1834 by Erika Almendarez - Student [facility] RECEIVED REPORT FROM OZIEL GOSS
[2020-06-10] MEDS: insulin glargine (Lantus) pen - multi-dose SQ SCH (21:01)
[2020-06-10] MEDS: temazepam 15mg capsule PO PRN (21:02)
[2020-06-11] MEDS: ALPRAZolam 0.5mg tablet PO SCH ×3 (00:41→16:58)
[2020-06-11] MEDS: piperacillin/tazo 4.5gm/100ml 100 ML IV SCH ×3 (00:42→15:53)
[2020-06-11] MEDS: oxyCODONE/APAP 10/325mg tablet PO PRN ×4 (00:42→21:55)
[2020-06-11] MEDS: vancomycin/NS 1 GM ADD-VANTAGE 250 ML IV SCH ×2 (00:43→11:44)
--- NOTE | 2020-06-11 06:22 | NUR ---
REPORT GIVEN TO KATHY HOBBS
--- NOTE | 2020-06-11 07:28 | NUR ---
paged PICC nurse [phone] ; pt needs PICC placed, consent in chart. Thank You
[2020-06-11 07:30] VITALS: BP 128/81
[2020-06-11] MEDS: LIPASE/PROTEASE/AMYLASE 4,200 unit CAPSULE.DR PO SCH ×3 (07:46→16:57)
[2020-06-11] MEDS: gabapentin 300mg capsule PO SCH ×3 (07:47→21:53)
[2020-06-11] MEDS: divalproex 250mg tablet, delayed-release PO SCH ×2 (07:47→21:53)
[2020-06-11] MEDS: olanzapine 10mg tablet PO SCH ×2 (07:47→21:53)
[2020-06-11] MEDS: lactobacillus rhamnosus 10,000 MMU CELLS/CAPSULE PO SCH (07:47)
[2020-06-11] MEDS: nicotine 21mg patch - 24 hr TD SCH (07:49)
[2020-06-11] MEDS: K and/or MAG REPLACEMENT MC SCH ×2 (08:00→20:00)
[2020-06-11 08:43] LABS: BASOPHILS # (AUTO) 0.1 X10'3 (0-0.2); EOSINOPHILS # (AUTO) 0.5 X10'3 (0-0.9); EOSINOPHILS % (AUTO) 8.4 % (0-6); HEMATOCRIT 33.5 % (42.0-52.0); HEMOGLOBIN 11.3 g/dl (14.0-17.9); LYMPHOCYTES # (AUTO) 1.6 X10'3 (1.1-4.8); MEAN CORPUSCULAR HGB CONC 33.7 g/dL (33.0-36.5); MEAN CORPUSCULAR VOLUME 89.1 FL (78-98); MEAN PLATELET VOLUME 8.8 FL (7.4-10.4); MONOCYTES # (AUTO) 0.8 X10'3 (0-0.9); MONOCYTES % (AUTO) 13.2 % (2-12); NEUTROPHILS # (AUTO) 3.1 X10'3 (1.8-7.7); NEUTROPHILS % (AUTO) 50.4 % (42-75); PLATELET COUNT 216 X10'3 (140-440); RED BLOOD COUNT 3.76 X10'6 (4.70-6.10); RED CELL DISTRIBUTION WIDTH 14.8 % (11.5-14.5); WHITE BLOOD COUNT 6.1 X10'3 (4.5-11.0)
[2020-06-11] MEDS: mineral oil/petrolatum, white cream 113gm jar TP SCH ×2 (08:45→20:00)
[2020-06-11] MEDS: insulin Lispro (HumaLOG) vial - multi-dose SQ SCH ×3 (08:46→18:44)
[2020-06-11 08:56] LABS: ALANINE AMINOTRANSFERASE 22 U/L (12-78); ALBUMIN 3.4 G/DL (3.4-5.0); ALBUMIN/GLOBULIN RATIO 0.9 (1.1-1.5); ALKALINE PHOSPHATASE 66 IU/L (46-116); ANION GAP 7 (8-16); ASPARTATE AMINO TRANSFERASE 11 U/L (10-37); BILIRUBIN,TOTAL 0.2 MG/DL (0.1-1.0); BLOOD UREA NITROGEN 32 MG/DL (7-18); BUN/CREATININE RATIO 25.2 (5.4-32.0); CALCIUM 9.4 MG/DL (8.5-10.1); CHLORIDE 100 MMOL/L (99-107); CREATININE 1.27 MG/DL (0.60-1.10); GLUCOSE 220 MG/DL (70-104); POTASSIUM 4.6 MMOL/L (3.5-5.1); SODIUM 136 MMOL/L (135-145); TOTAL CARBON DIOXIDE 28.7 MMOL/L (24-32); TOTAL PROTEIN 7.3 G/DL (6.4-8.2); eGFR 66 ML/MIN
[2020-06-11 10:00] VITALS: BP 92/59
[2020-06-11] MEDS: morphine 2 MG/ML inj. syringe IV PRN ×2 (11:45→18:49)
[2020-06-11] MEDS: LIDOcaine 5% patch TP SCH (12:04)
[2020-06-11] MEDS ORDERED: oxyCODONE/APAP 5-325mg tablet PO PRN (12:20)
[2020-06-11] MEDS ORDERED: oxyCODONE/APAP 10/325mg tablet PO PRN (12:20)
[2020-06-11 18:15] VITALS: BP 130/89
--- NOTE | 2020-06-11 18:24 | NUR ---
Problems reprioritized. Patient report given, questions answered & plan of care reviewed with FABY Simpson.
[2020-06-11] MEDS: insulin glargine (Lantus) pen - multi-dose SQ SCH (21:56)
[2020-06-11 22:00] VITALS: BP 110/59
[2020-06-12] MEDS: ALPRAZolam 0.5mg tablet PO SCH ×2 (00:08→07:58)
[2020-06-12] MEDS: piperacillin/tazo 4.5gm/100ml 100 ML IV SCH ×3 (00:12→16:43)
[2020-06-12] MEDS: vancomycin/NS 1 GM ADD-VANTAGE 250 ML IV SCH ×3 (00:12→23:39)
[2020-06-12] MEDS: morphine 2 MG/ML inj. syringe IV PRN ×3 (01:49→19:25)
[2020-06-12] MEDS: oxyCODONE/APAP 10/325mg tablet PO PRN ×4 (04:48→23:35)
[2020-06-12 06:00] VITALS: BP 119/77
[2020-06-12] MEDS: divalproex 250mg tablet, delayed-release PO SCH ×2 (07:58→20:00)
[2020-06-12] MEDS: LIDOcaine 5% patch TP SCH (07:58)
[2020-06-12] MEDS: olanzapine 10mg tablet PO SCH ×2 (07:58→21:39)
[2020-06-12] MEDS: gabapentin 300mg capsule PO SCH ×3 (07:58→21:38)
[2020-06-12] MEDS: lactobacillus rhamnosus 10,000 MMU CELLS/CAPSULE PO SCH (07:58)
[2020-06-12] MEDS: mineral oil/petrolatum, white cream 113gm jar TP SCH ×2 (07:59→20:00)
[2020-06-12] MEDS: LIPASE/PROTEASE/AMYLASE 4,200 unit CAPSULE.DR PO SCH ×3 (07:59→17:57)
[2020-06-12] MEDS: K and/or MAG REPLACEMENT MC SCH ×2 (08:00→20:00)
[2020-06-12] MEDS: nicotine 21mg patch - 24 hr TD SCH (08:03)
[2020-06-12 08:33] LABS: BASOPHILS % (AUTO) 0.7 % (0-1); EOSINOPHILS # (AUTO) 0.5 X10'3 (0-0.9); EOSINOPHILS % (AUTO) 6.8 % (0-6); HEMATOCRIT 34.3 % (42.0-52.0); HEMOGLOBIN 11.6 g/dl (14.0-17.9); LYMPHOCYTES # (AUTO) 2.1 X10'3 (1.1-4.8); LYMPHOCYTES % (AUTO) 30.6 % (21-51); MEAN CORPUSCULAR HEMOGLOBIN 30.1 PG (27.0-31.0); MEAN CORPUSCULAR HGB CONC 33.9 g/dL (33.0-36.5); MEAN CORPUSCULAR VOLUME 88.9 FL (78-98); MEAN PLATELET VOLUME 8.9 FL (7.4-10.4); MONOCYTES # (AUTO) 0.8 X10'3 (0-0.9); MONOCYTES % (AUTO) 11.3 % (2-12); NEUTROPHILS # (AUTO) 3.4 X10'3 (1.8-7.7); NEUTROPHILS % (AUTO) 50.6 % (42-75); PLATELET COUNT 238 X10'3 (140-440); RED BLOOD COUNT 3.86 X10'6 (4.70-6.10); RED CELL DISTRIBUTION WIDTH 14.7 % (11.5-14.5); WHITE BLOOD COUNT 6.8 X10'3 (4.5-11.0)
--- NOTE | 2020-06-12 09:03 | NUR ---
Pt refused accucheck this morning, patient wants IV unhooked for an hour. Pt sitting in chair eating breakfast
[2020-06-12 09:21] LABS: ALANINE AMINOTRANSFERASE 26 U/L (12-78); ALBUMIN 3.5 G/DL (3.4-5.0); ALBUMIN/GLOBULIN RATIO 0.9 (1.1-1.5); ALKALINE PHOSPHATASE 61 IU/L (46-116); ANION GAP 8 (8-16); ASPARTATE AMINO TRANSFERASE 16 U/L (10-37); BILIRUBIN,TOTAL 0.2 MG/DL (0.1-1.0); BLOOD UREA NITROGEN 30 MG/DL (7-18); BUN/CREATININE RATIO 29.1 (5.4-32.0); CALCIUM 9.7 MG/DL (8.5-10.1); CHLORIDE 100 MMOL/L (99-107); CREATININE 1.03 MG/DL (0.60-1.10); GLUCOSE 139 MG/DL (70-104); POTASSIUM 4.5 MMOL/L (3.5-5.1); SODIUM 137 MMOL/L (135-145); TOTAL CARBON DIOXIDE 28.9 MMOL/L (24-32); TOTAL PROTEIN 7.5 G/DL (6.4-8.2); VALPROATE 67 UG/ML (50-100); eGFR 84 ML/MIN
[2020-06-12 11:07] VITALS: BP 121/73
[2020-06-12] MEDS: insulin Lispro (HumaLOG) vial - multi-dose SQ SCH ×2 (14:08→19:31)
[2020-06-12] MEDS: ALPRAZolam 0.5mg tablet PO PRN (17:54)
[2020-06-12 18:00] VITALS: BP 90/59
--- NOTE | 2020-06-12 18:20 | NUR ---
Patient in room ORTHO 4008. I have received report from FABY Rodriguez and had the opportunity to ask questions and assume patient care.
--- NOTE | 2020-06-12 19:05 | NUR ---
Upon entering the room we found the patient's wet underware hanging from the curtain hooks. He is verbally abusive and hostile. Wants Percocet, but its not time and I offered Morphine but he demanded I call Md and have schedule changed changed so he can get Percocet earlier. He is now up yelling and crying demanding charge nurse speak with him. FABY Dickersonpropellant charge zone assembler is with him now.
[2020-06-12] MEDS: insulin glargine (Lantus) pen - multi-dose SQ SCH (21:43)
[2020-06-12 22:00] VITALS: BP 112/72
[2020-06-13] MEDS: ALPRAZolam 0.5mg tablet PO PRN ×4 (01:51→22:52)
[2020-06-13] MEDS: morphine 2 MG/ML inj. syringe IV PRN ×2 (04:51→12:53)
[2020-06-13 05:00] VITALS: BP 123/70
--- NOTE | 2020-06-13 06:32 | NUR ---
Problems reprioritized. Patient report given, questions answered & plan of care reviewed with FABY Corrales.
[2020-06-13] MEDS: divalproex 250mg tablet, delayed-release PO SCH ×2 (07:12→20:36)
[2020-06-13] MEDS: gabapentin 300mg capsule PO SCH ×3 (07:13→20:36)
[2020-06-13] MEDS: lactobacillus rhamnosus 10,000 MMU CELLS/CAPSULE PO SCH (07:13)
[2020-06-13] MEDS: olanzapine 10mg tablet PO SCH ×2 (07:13→20:36)
[2020-06-13] MEDS: LIPASE/PROTEASE/AMYLASE 4,200 unit CAPSULE.DR PO SCH ×3 (07:13→18:00)
[2020-06-13] MEDS: nicotine 21mg patch - 24 hr TD SCH (07:14)
[2020-06-13] MEDS: piperacillin/tazo 4.5gm/100ml 100 ML IV SCH ×3 (07:15→16:21)
[2020-06-13] MEDS: LIDOcaine 5% patch TP SCH (07:15)
[2020-06-13] MEDS: oxyCODONE/APAP 10/325mg tablet PO PRN ×3 (07:35→22:27)
[2020-06-13] MEDS: mineral oil/petrolatum, white cream 113gm jar TP SCH ×2 (08:00→20:36)
[2020-06-13] MEDS: K and/or MAG REPLACEMENT MC SCH ×2 (08:00→20:00)
[2020-06-13 08:13] LABS: BASOPHILS # (AUTO) 0.1 X10'3 (0-0.2); BASOPHILS % (AUTO) 0.8 % (0-1); EOSINOPHILS # (AUTO) 0.5 X10'3 (0-0.9); EOSINOPHILS % (AUTO) 6.5 % (0-6); HEMATOCRIT 37.4 % (42.0-52.0); HEMOGLOBIN 12.5 g/dl (14.0-17.9); LYMPHOCYTES # (AUTO) 2.5 X10'3 (1.1-4.8); LYMPHOCYTES % (AUTO) 32.1 % (21-51); MEAN CORPUSCULAR HEMOGLOBIN 30.1 PG (27.0-31.0); MEAN CORPUSCULAR HGB CONC 33.4 g/dL (33.0-36.5); MEAN CORPUSCULAR VOLUME 90.1 FL (78-98); MEAN PLATELET VOLUME 9.1 FL (7.4-10.4); MONOCYTES % (AUTO) 12.2 % (2-12); NEUTROPHILS # (AUTO) 3.8 X10'3 (1.8-7.7); NEUTROPHILS % (AUTO) 48.4 % (42-75); PLATELET COUNT 259 X10'3 (140-440); RED BLOOD COUNT 4.15 X10'6 (4.70-6.10); RED CELL DISTRIBUTION WIDTH 14.5 % (11.5-14.5); WHITE BLOOD COUNT 7.8 X10'3 (4.5-11.0)
[2020-06-13 08:41] LABS: ALANINE AMINOTRANSFERASE 24 U/L (12-78); ALBUMIN 3.7 G/DL (3.4-5.0); ALBUMIN/GLOBULIN RATIO 0.9 (1.1-1.5); ALKALINE PHOSPHATASE 65 IU/L (46-116); ANION GAP 8 (8-16); ASPARTATE AMINO TRANSFERASE 17 U/L (10-37); BILIRUBIN,TOTAL 0.3 MG/DL (0.1-1.0); BLOOD UREA NITROGEN 33 MG/DL (7-18); BUN/CREATININE RATIO 25.6 (5.4-32.0); CALCIUM 9.7 MG/DL (8.5-10.1); CHLORIDE 99 MMOL/L (99-107); CREATININE 1.29 MG/DL (0.60-1.10); GLUCOSE 157 MG/DL (70-104); POTASSIUM 4.7 MMOL/L (3.5-5.1); SODIUM 134 MMOL/L (135-145); TOTAL CARBON DIOXIDE 26.9 MMOL/L (24-32); TOTAL PROTEIN 7.9 G/DL (6.4-8.2); VALPROATE 65 UG/ML (50-100); eGFR 65 ML/MIN
[2020-06-13 11:40] VITALS: BP 124/78
[2020-06-13] MEDS: vancomycin/NS 1 GM ADD-VANTAGE 250 ML IV SCH (12:19)
[2020-06-13] MEDS: insulin Lispro (HumaLOG) vial - multi-dose SQ SCH (13:39)
[2020-06-13] MEDS ORDERED: hydrOXYzine 10 MG tablet PO PRN (16:35)
[2020-06-13] MEDS: temazepam 15mg capsule PO PRN (20:35)
[2020-06-13] MEDS: insulin glargine (Lantus) pen - multi-dose SQ SCH (20:39)
[2020-06-13 22:00] VITALS: BP 139/94
[2020-06-13] MEDS ORDERED: VANCOMYCIN LEVEL IV ONE (23:30)
[2020-06-14] MEDS: vancomycin/NS 1 GM ADD-VANTAGE 250 ML IV SCH ×3 (00:22→23:29)
[2020-06-14] MEDS: piperacillin/tazo 4.5gm/100ml 100 ML IV SCH ×4 (00:22→23:29)
[2020-06-14 06:00] VITALS: BP 129/86
[2020-06-14] MEDS: olanzapine 10mg tablet PO SCH ×2 (07:06→20:17)
[2020-06-14] MEDS: gabapentin 300mg capsule PO SCH ×3 (07:06→20:18)
[2020-06-14] MEDS: oxyCODONE/APAP 10/325mg tablet PO PRN ×3 (07:06→20:17)
[2020-06-14] MEDS: lactobacillus rhamnosus 10,000 MMU CELLS/CAPSULE PO SCH (07:06)
[2020-06-14] MEDS: LIDOcaine 5% patch TP SCH (07:07)
[2020-06-14] MEDS: LIPASE/PROTEASE/AMYLASE 4,200 unit CAPSULE.DR PO SCH ×3 (07:07→17:46)
[2020-06-14] MEDS: divalproex 250mg tablet, delayed-release PO SCH ×2 (07:07→20:17)
[2020-06-14] MEDS: nicotine 21mg patch - 24 hr TD SCH (07:07)
[2020-06-14] MEDS: ALPRAZolam 0.5mg tablet PO PRN ×3 (07:21→18:00)
[2020-06-14] MEDS: K and/or MAG REPLACEMENT MC SCH ×2 (08:00→20:00)
[2020-06-14] MEDS ORDERED: duloxetine 20mg capsule.DR PO SCH (08:00)
[2020-06-14 08:18] LABS: BASOPHILS # (AUTO) 0.1 X10'3 (0-0.2); BASOPHILS % (AUTO) 0.8 % (0-1); EOSINOPHILS # (AUTO) 0.5 X10'3 (0-0.9); EOSINOPHILS % (AUTO) 5.7 % (0-6); HEMATOCRIT 39.1 % (42.0-52.0); HEMOGLOBIN 13.1 g/dl (14.0-17.9); LYMPHOCYTES # (AUTO) 2.2 X10'3 (1.1-4.8); LYMPHOCYTES % (AUTO) 24.4 % (21-51); MEAN CORPUSCULAR HEMOGLOBIN 30.1 PG (27.0-31.0); MEAN CORPUSCULAR HGB CONC 33.4 g/dL (33.0-36.5); MEAN PLATELET VOLUME 9.2 FL (7.4-10.4); MONOCYTES # (AUTO) 1.1 X10'3 (0-0.9); MONOCYTES % (AUTO) 12.2 % (2-12); NEUTROPHILS # (AUTO) 5.1 X10'3 (1.8-7.7); NEUTROPHILS % (AUTO) 56.9 % (42-75); PLATELET COUNT 282 X10'3 (140-440); RED BLOOD COUNT 4.34 X10'6 (4.70-6.10); RED CELL DISTRIBUTION WIDTH 14.4 % (11.5-14.5)
[2020-06-14] MEDS: mineral oil/petrolatum, white cream 113gm jar TP SCH ×2 (08:52→20:18)
[2020-06-14] MEDS: insulin Lispro (HumaLOG) vial - multi-dose SQ SCH (09:04)
[2020-06-14 09:05] LABS: ALANINE AMINOTRANSFERASE 54 U/L (12-78); ALBUMIN/GLOBULIN RATIO 0.9 (1.1-1.5); ANION GAP 9 (8-16); ASPARTATE AMINO TRANSFERASE 36 U/L (10-37); BILIRUBIN,TOTAL 0.3 MG/DL (0.1-1.0); BLOOD UREA NITROGEN 32 MG/DL (7-18); BUN/CREATININE RATIO 25.4 (5.4-32.0); CALCIUM 9.7 MG/DL (8.5-10.1); CHLORIDE 100 MMOL/L (99-107); CREATININE 1.26 MG/DL (0.60-1.10); GLUCOSE 149 MG/DL (70-104); POTASSIUM 4.2 MMOL/L (3.5-5.1); SODIUM 135 MMOL/L (135-145); TOTAL CARBON DIOXIDE 25.9 MMOL/L (24-32); TOTAL PROTEIN 8.5 G/DL (6.4-8.2); eGFR 66 ML/MIN
[2020-06-14 09:06] LABS: ALKALINE PHOSPHATASE 75 IU/L (46-116)
[2020-06-14 10:01] VITALS: BP 131/88
[2020-06-14] MEDS ORDERED: ALPRAZolam 0.5mg tablet PO PRN (10:55)
[2020-06-14] MEDS: duloxetine 20mg capsule.DR PO SCH ×2 (12:30→20:17)
[2020-06-14 12:45] LABS: LIPASE < 50 U/L (73-393)
[2020-06-14] MEDS: normal saline 1000ml 1,000 ML IV SCH ×2 (13:30→22:35)
[2020-06-14] MEDS ORDERED: iohexol 300mg/ml 100ml inj. ONE (14:34)
[2020-06-14] MEDS ORDERED: GADOTERATE MEGLUMINE 7.5 MMOL/15 ML VIAL IV ONE (16:14)
--- NOTE | 2020-06-14 18:21 | NUR ---
Problems reprioritized. Patient report given, questions answered & plan of care reviewed with NEGRITA HOBBS.
[2020-06-14] MEDS ORDERED: acetylcysteine 200 MG/ml 4ml vial PO SCH (20:00)
[2020-06-14] MEDS: hydrOXYzine 25 MG tablet PO PRN (20:17)
[2020-06-14] MEDS: temazepam 15mg capsule PO PRN (20:18)
[2020-06-14] MEDS: insulin glargine (Lantus) pen - multi-dose SQ SCH (21:26)
[2020-06-14 22:05] VITALS: BP 117/75
[2020-06-15] MEDS: ALPRAZolam 0.5mg tablet PO PRN ×2 (01:23→09:04)
[2020-06-15] MEDS: oxyCODONE/APAP 10/325mg tablet PO PRN ×2 (01:59→08:19)
[2020-06-15] MEDS: lactobacillus rhamnosus 10,000 MMU CELLS/CAPSULE PO SCH (07:17)
[2020-06-15] MEDS: olanzapine 10mg tablet PO SCH (07:17)
[2020-06-15] MEDS: gabapentin 300mg capsule PO SCH (07:18)
[2020-06-15] MEDS: LIPASE/PROTEASE/AMYLASE 4,200 unit CAPSULE.DR PO SCH (07:18)
[2020-06-15] MEDS: divalproex 250mg tablet, delayed-release PO SCH (07:18)
[2020-06-15] MEDS: duloxetine 20mg capsule.DR PO SCH (07:19)
[2020-06-15] MEDS: hydrOXYzine 25 MG tablet PO PRN (07:19)
[2020-06-15] MEDS: mineral oil/petrolatum, white cream 113gm jar TP SCH (07:23)
[2020-06-15] MEDS: LIDOcaine 5% patch TP SCH (07:24)
[2020-06-15 07:44] LABS: BASOPHILS # (AUTO) 0.1 X10'3 (0-0.2); BASOPHILS % (AUTO) 0.9 % (0-1); EOSINOPHILS # (AUTO) 0.4 X10'3 (0-0.9); EOSINOPHILS % (AUTO) 6.1 % (0-6); HEMATOCRIT 34.5 % (42.0-52.0); HEMOGLOBIN 11.8 g/dl (14.0-17.9); LYMPHOCYTES % (AUTO) 27.7 % (21-51); MEAN CORPUSCULAR HEMOGLOBIN 30.1 PG (27.0-31.0); MEAN CORPUSCULAR HGB CONC 34.1 g/dL (33.0-36.5); MEAN CORPUSCULAR VOLUME 88.3 FL (78-98); MEAN PLATELET VOLUME 8.7 FL (7.4-10.4); MONOCYTES # (AUTO) 0.8 X10'3 (0-0.9); MONOCYTES % (AUTO) 11.4 % (2-12); NEUTROPHILS # (AUTO) 3.9 X10'3 (1.8-7.7); NEUTROPHILS % (AUTO) 53.9 % (42-75); PLATELET COUNT 230 X10'3 (140-440); RED BLOOD COUNT 3.91 X10'6 (4.70-6.10); RED CELL DISTRIBUTION WIDTH 13.9 % (11.5-14.5); WHITE BLOOD COUNT 7.3 X10'3 (4.5-11.0)
[2020-06-15] MEDS: nicotine 21mg patch - 24 hr TD SCH (07:57)
[2020-06-15 08:00] VITALS: BP 136/87
[2020-06-15] MEDS: piperacillin/tazo 4.5gm/100ml 100 ML IV SCH (08:00)
[2020-06-15 08:08] LABS: ALANINE AMINOTRANSFERASE 82 U/L (12-78); ALBUMIN 3.4 G/DL (3.4-5.0); ALBUMIN/GLOBULIN RATIO 0.9 (1.1-1.5); ALKALINE PHOSPHATASE 75 IU/L (46-116); ANION GAP 9 (8-16); ASPARTATE AMINO TRANSFERASE 64 U/L (10-37); BILIRUBIN,TOTAL 0.3 MG/DL (0.1-1.0); BLOOD UREA NITROGEN 23 MG/DL (7-18); CALCIUM 9.2 MG/DL (8.5-10.1); CHLORIDE 99 MMOL/L (99-107); GLUCOSE 180 MG/DL (70-104); POTASSIUM 4.1 MMOL/L (3.5-5.1); SODIUM 134 MMOL/L (135-145); TOTAL CARBON DIOXIDE 26.1 MMOL/L (24-32); TOTAL PROTEIN 7.2 G/DL (6.4-8.2); eGFR 87 ML/MIN
[2020-06-15 10:00] VITALS: BP 135/91
[2020-06-15] MEDS ORDERED: HYDR-3686 PO (11:46)
--- NOTE | 2020-06-15 12:10 | NUR ---
pt upset at leaving, refusing a picture at this time Addendum: 06/15/20 at 1211 by Alvin MACHUCA RN Amended: Links added.
--- NOTE | 2020-06-15 12:31 | NUR ---
attempting to discharge pt but unable to locate ride per the instructions of case management to contact "[employer] through [employer]". no one is picking up the phone at [facility]. I have reached out again to case management to assist.
[2020-06-16] MEDS ORDERED: ALPR1TAB2 PO (20:33)
== END 2020-06-15 12:55 | disposition home or self-care (01) | DRG 469 ==
LOC: ER 17:37 → ED HOLD 22:55 → ORTHO 4S 06-02 00:50
PROVIDERS: ADMIT Internal Medicine; ATTEND Family Medicine
PROC: BW211ZZ Computerized Tomography (CT Scan) of Abdomen and Pelvis using Low Osmolar Contrast (ICD-10-PCS; principal; 2020-06-14)
DX: N17.9 Acute kidney failure, unspecified (principal); E11.65 Type 2 diabetes mellitus with hyperglycemia; E11.40 Type 2 diabetes mellitus with diabetic neuropathy, unspecified; F17.210 Nicotine dependence, cigarettes, uncomplicated; F25.9 Schizoaffective disorder, unspecified; F39 Unspecified mood [affective] disorder; E11.22 Type 2 diabetes mellitus with diabetic chronic kidney disease; N18.9 Chronic kidney disease, unspecified; F19.10 Other psychoactive substance abuse, uncomplicated; M54.9 Dorsalgia, unspecified; F10.20 Alcohol dependence, uncomplicated; F41.9 Anxiety disorder, unspecified; Z59.0 Homelessness; Z76.5 Malingerer [conscious simulation]; Z79.899 Other long term (current) drug therapy; Z79.4 Long term (current) use of insulin; Z71.6 Tobacco abuse counseling
CPT/HCPCS: 36415; 72158; 74177; 80053; 80164; 80202; 80305; 80320; 82948; 83036; 83605; 83690; 83735; 84145; 85007; 85025; 85610; 85651; 86140; 87040; 87081; 96374; 99285; A9575; G0378; J1815; J2270; J2543; J3370; J7030; Q0177; Q9967

== ENCOUNTER 2020-06-16 07:19 | Emergency (ER) | payer MEDICAID ==
[~2020-06-16] VITALS: Ht 180.3 cm; Wt 70.0 kg
[~2020-06-16 07:19] MED LIST: ACET-890 PO; ALBU18HF2 INH; AMYL1CAP54 PO; DICL100G15 TOP; DIVA250T15 PO; ERGO500041 PO; GABA300C PO; HYDR-3686 PO; INSU100V9 SQ; LACT1CAP92 PO; LOPE-190 PO; MULT-227 PO; NICO-807 BC; OLAN10TA3 PO; OLAN20TA3 PO; OXYC-150 PO; POLY119P2 PO
[2020-06-16] MEDS ORDERED: LORazepam 1 MG tablet PO ONE ×2 (07:25→16:50)
[2020-06-16] MEDS ORDERED: OLANZapine 2.5MG tablet PO ONE (07:25)
[2020-06-16 08:19] LABS: CLARITY,URINE CLEAR (Clear); COLOR,URINE YELLOW (Yellow); GLUCOSE, URINE >=1000 mg/dl (Neg); KETONES,URINE NEGATIVE (Neg); LEUKOCYTE ESTERASE ,URINE NEGATIVE (Neg); NITRITES, URINE NEGATIVE (Neg); OCCULT BLOOD,URINE NEGATIVE (Neg); PH,URINE 6.5 (4.8-8.0); PROTEIN,URINE NEGATIVE (Neg); UROBILINOGEN,URINE 0.2 E.U/dL (0.2-1.0)
[2020-06-16 08:24] LABS: BASOPHILS # (AUTO) 0.1 X10'3 (0-0.2); BASOPHILS % (AUTO) 1.1 % (0-1); EOSINOPHILS # (AUTO) 0.2 X10'3 (0-0.9); EOSINOPHILS % (AUTO) 3.8 % (0-6); HEMATOCRIT 34.7 % (42.0-52.0); HEMOGLOBIN 11.8 g/dl (14.0-17.9); LYMPHOCYTES # (AUTO) 1.1 X10'3 (1.1-4.8); LYMPHOCYTES % (AUTO) 18.7 % (21-51); MEAN CORPUSCULAR HEMOGLOBIN 30.1 PG (27.0-31.0); MEAN CORPUSCULAR HGB CONC 33.9 g/dL (33.0-36.5); MEAN CORPUSCULAR VOLUME 88.7 FL (78-98); MEAN PLATELET VOLUME 9.1 FL (7.4-10.4); MONOCYTES # (AUTO) 0.6 X10'3 (0-0.9); NEUTROPHILS # (AUTO) 3.9 X10'3 (1.8-7.7); NEUTROPHILS % (AUTO) 66.4 % (42-75); PLATELET COUNT 244 X10'3 (140-440); RED BLOOD COUNT 3.91 X10'6 (4.70-6.10); RED CELL DISTRIBUTION WIDTH 14.4 % (11.5-14.5); SQUAMOUS EPITHELIAL CELL,UR FEW /LPF (FEW); UA COLLECTION TYPE NON-SPECIFIED; WHITE BLOOD COUNT 5.9 X10'3 (4.5-11.0)
[2020-06-16 08:26] LABS: BACTERIA,URINE NONE SEEN /HPF (Neg); RBC,URINE NONE SEEN /HPF (0-2); WBC,URINE NONE SEEN /HPF (0-4)
[2020-06-16 08:33] LABS: ALANINE AMINOTRANSFERASE 60 U/L (12-78); ALBUMIN 3.8 G/DL (3.4-5.0); ALBUMIN/GLOBULIN RATIO 0.9 (1.1-1.5); ALKALINE PHOSPHATASE 78 IU/L (46-116); ANION GAP 9 (8-16); ASPARTATE AMINO TRANSFERASE 25 U/L (10-37); BILIRUBIN,TOTAL 0.2 MG/DL (0.1-1.0); BLOOD UREA NITROGEN 22 MG/DL (7-18); CALCIUM 9.5 MG/DL (8.5-10.1); CHLORIDE 99 MMOL/L (99-107); GLUCOSE 376 MG/DL (70-104); POTASSIUM 4.7 MMOL/L (3.5-5.1); SODIUM 136 MMOL/L (135-145); TOTAL CARBON DIOXIDE 28.5 MMOL/L (24-32); TOTAL PROTEIN 7.9 G/DL (6.4-8.2); URINE AMPHETAMINE SCREEN NEGATIVE (Neg); URINE BARBITUATE SCREEN NEGATIVE (Neg); URINE BENZODIAZEPINES SCREEN POSITIVE (Neg); URINE CANNABINOID SCREEN NEGATIVE (Neg); URINE COCAINE SCREEN NEGATIVE (Neg); URINE METHADONE SCREEN NEGATIVE (Neg); URINE OPIATE SCREEN POSITIVE (Neg); URINE PHENCYCLIDINE SCREEN NEGATIVE (Neg); eGFR 78 ML/MIN
[2020-06-16 08:43] LABS: ETHANOL < 0.010 GM/DL (0.0-0.010)
--- NOTE | 2020-06-16 09:53 | NUR ---
Patient lying in bed resting quietly awaiting evaluation. Patient denies any pain and reports some relief of anxiety.
--- NOTE | 2020-06-16 10:58 | NUR ---
patient being evaluated by psych. patient resting in bed and cooperative.
[2020-06-16] MEDS: insulin Lispro (HumaLOG) vial - multi-dose SQ SCH (13:05)
--- NOTE | 2020-06-16 13:10 | NUR ---
PATIENT BG ELEVATED ON ARRIVAL. RN RECHECKED AND NOTED TO BE 408. DR PERDOMO NOTIFIED AND ORDERS PLACED FOR INSULIN. PATIENT RECEIVED LUNCH TRAY AND STATED HE DID NOT WANT TO EAT. PATIENT COVERED WITH 12 UNITS INSULIN FOR CORRECTIONAL SINCE NOT EATING AT THIS TIME.
--- NOTE | 2020-06-16 14:41 | NUR ---
patient continues to rest in bed and sleep. tray available when patient is hungry
--- NOTE | 2020-06-16 15:33 | NUR ---
RN spoke with Shaye. Patient lying in bed resting comfortably. patietn cooperative. patietn still has not ate lunch
--- NOTE | 2020-06-16 16:37 | NUR ---
Patient resting in bed queity
--- NOTE | 2020-06-16 17:00 | NUR ---
patient crying stating he is scared. says he has no one and no where to go. patient denies wanting to hurt himself or anyone else. patient given 1 mg ativan PO. BG rechecked and 100
--- NOTE | 2020-06-16 17:13 | NUR ---
[facility] [address] SANTANA. THEY WILL BE PICKING HIM UP TOMORROW MORNING. TIME UNKNOWN
--- NOTE | 2020-06-16 17:37 | NUR ---
angela updated that he would be transferred tomorrow at 0700
--- NOTE | 2020-06-16 20:06 | NUR ---
Patient states he did not want to eat dinner. Snacks provided at patient's bedside table. Warm blankets provided as well as ear plugs and eye sleep wear. Patient updated on the plan of care.
--- NOTE | 2020-06-16 20:30 | NUR ---
Discussed long acting insulin scheduled for 2100 tonight with patient. Blood sugar of 408 today coming down to 100 with administration of Humalog earlier in the day noted. Patient did not eat any dinner due to being "upset, cold and tired". Bedside snack provided but patient not hungry at this time, snack left. Patient states he is a brittle type I diabetic and does not want to take long acting insulin tonight. Med rec done with patient and taken over for MD to sign.
[2020-06-16] MEDS ORDERED: ALPR1TAB2 PO (20:33)
[2020-06-16] MEDS ORDERED: olanzapine 10mg tablet PO SCH (21:00)
[2020-06-16] MEDS ORDERED: insulin glargine (Lantus) pen - multi-dose SQ SCH (21:00)
--- NOTE | 2020-06-16 21:00 | NUR ---
Patient moved to bed ED 23 - this area is more quiet for patient to rest.
[2020-06-16] MEDS ORDERED: ergocalciferol (vit D) capsule 1,250 MCG (50,000 UNITS) CAPSULE PO SCH (22:15)
[2020-06-16] MEDS ORDERED: ALBUTEROL INHALER 1 PUFF/90 MCG INHALER IH PRN (22:15)
[2020-06-16] MEDS ORDERED: albuterol 2.5 MG/3 ML nebule NEB PRN (22:40)
[2020-06-16] MEDS: gabapentin 300mg capsule PO SCH (23:11)
[2020-06-16] MEDS: hydrOXYzine 25 MG tablet PO PRN (23:12)
--- NOTE | 2020-06-17 01:15 | NUR ---
Patient was incontinent of stool. Clean items provided. Patient's blood glucose was checked and is 268. Patient states he has had diarrhea x2 days and has been staying at the [place]. Patient aware we need stool specimen at this time.
--- NOTE | 2020-06-17 02:10 | NUR ---
Patient up to bathroom; attempt to collect stool specimen unsuccesful as most of stool went into toilet not into collection hat.
--- NOTE | 2020-06-17 03:49 | NUR ---
Patient up to restroom and was assisted back to bed by staff. Vital signs taken and are stable as charted.
--- NOTE | 2020-06-17 04:02 | NUR ---
Dr. Copeland notified of patient's abdominal and back pain and diarrhea and attempting to collect stool specimen. Order for Tylenol received.
[2020-06-17] MEDS ORDERED: acetaminophen 325mg tablet PO ONE ×2 (04:05→04:40)
[2020-06-17 05:33] VITALS: BP 135/76
--- NOTE | 2020-06-17 07:30 | NUR ---
Pt continues to rest with eyes closed, effortless respirations observed.
[2020-06-17] MEDS ORDERED: multivitamins, therapeutics tablet PO SCH (08:00)
[2020-06-17] MEDS ORDERED: lactobacillus rhamnosus 10,000 MMU CELLS/CAPSULE PO SCH (08:00)
[2020-06-17] MEDS ORDERED: insulin glargine (Lantus) pen - multi-dose SQ SCH (08:00)
[2020-06-17] MEDS ORDERED: ergocalciferol (vit D) capsule 1,250 MCG (50,000 UNITS) CAPSULE PO SCH (08:00)
[2020-06-17] MEDS ORDERED: olanzapine 10mg tablet PO SCH (08:00)
[2020-06-17] MEDS ORDERED: divalproex 250mg tablet, delayed-release PO SCH (08:00)
--- NOTE | 2020-06-17 08:30 | NUR ---
Pt eating breakfast tray.
[2020-06-17] MEDS: hydrOXYzine 25 MG tablet PO PRN (09:35)
[2020-06-17] MEDS: gabapentin 300mg capsule PO SCH ×2 (09:36→13:42)
[2020-06-17] MEDS: insulin Lispro (HumaLOG) vial - multi-dose SQ SCH (09:43)
--- NOTE | 2020-06-17 09:45 | NUR ---
Pt awoke incont of stool and crying. Pt unable to give stool sample and stool absorbed into clothing and bedding. Pt cleaned up with supplies given and new scrubs supplied. Pt bed cleaned and new linen placed.
--- NOTE | 2020-06-17 11:15 | NUR ---
Pt continues to rest and denies needs.
--- NOTE | 2020-06-17 13:20 | NUR ---
Pt lunch tray placed at bedside, pt reports he currently isnt hungry and repositions in and closes eyes.
--- NOTE | 2020-06-17 13:50 | NUR ---
Pt refused to eat lunch tray, pt encouraged to have a few bites. Pt yells out "I,m not hungry" and proceeds to refuse insulin correctional dosage.
== END 2020-06-17 14:20 ==
LOC: ER 07:20
DX: R44.0 Auditory hallucinations (principal); Z20.822 Contact with and (suspected) exposure to COVID-19; E11.9 Type 2 diabetes mellitus without complications; Z72.89 Other problems related to lifestyle; Z73.6 Limitation of activities due to disability; Z59.0 Homelessness; Z56.0 Unemployment, unspecified; Z79.899 Other long term (current) drug therapy
CPT/HCPCS: 36415; 80053; 80305; 80320; 81001; 82948; 84443; 85025; 87426; 96372; 99285; J1815; Q0177